=== PATIENT | male | born 1960 | race Hispanic/Latino ===

== ENCOUNTER 2017-05-30 07:09 | Day surgery (SDC) | payer MEDICARE ==
[2017-05-30 07:27] VITALS: BMI 34.2
[2017-05-30 07:42] VITALS: RESP 19
[2017-05-30] MEDS ORDERED: Propofol 10 mg/ml Inj (20 ML) ONE (08:06)
[2017-05-30] MEDS ORDERED: Lidocaine 1% Inj (20ml) ONE (08:07)
[2017-05-30] MEDS ORDERED: Sodium Chloride 0.9% 1,000 ML IV SCH (08:30)
[2017-05-30 09:25] VITALS: BP 113/76; PULSE 51; TEMP 97.4; O2SAT 97
== END 2017-05-30 09:43 | disposition home or self-care (01) ==
LOC: ENDO 07:09
PROVIDERS: ATTEND Specialist
DX: K25.9 Gastric ulcer, unspecified as acute or chronic, without hemorrhage or perforation (principal); K44.9 Diaphragmatic hernia without obstruction or gangrene; I71.4 Abdominal aortic aneurysm, without rupture
CPT/HCPCS: 43239; 88305; 88342; J2704; J7040 ×2

== ENCOUNTER 2017-12-26 08:08 | Observation (INO) | payer MEDICARE ==
[2017-12-26 08:17] VITALS: BMI 34.4
--- NOTE | 2017-12-26 08:47 | ED PDOC ---
Arrival/HPI - General Chief Complaint: Chest Pain Time Seen by Provider: 12/26/17 08:12 Historian: Patient - History of Present Illness Narrative History of Present Illness (Text): 12/26/17 08:41 Patient is a 57 yo M with PMH of HTN, CAD, PCI x 2 stents, Thoracic Aneurysm, dyslipidemia, hypogonadism presents to emergency department due to chest pain this AM. Patient states that pain was midsternal and did not radiate. Patient was worried due to his history of aortic aneurysm. Previous chest CT on 10/18/16 showed emergency department the ascending aorta measuring 4.2 cm and descending 3.3 cm, which was stable on comparison to previous imaging. Patient states that the chest pain has improved while in the emergency department, but is still present. Patient denies SOB, n/v/d, abdominal pain, fever, chills, AMARO, dizziness , or palpitations. PMD: Padkowsky Time/Duration: Prior to Arrival Symptom Onset: Sudden Symptom Course: Improving Quality: Pressure, Tightness Past Medical History - Provider Review Nursing Documentation Reviewed: Yes - Infectious Disease Hx of Infectious Diseases: None - Tetanus Immunization Tetanus Immunization: Unknown - Cardiac Hx Hypertension: Yes - Pulmonary Hx Respiratory Disorders: No - Neurological Hx Meningitis: Yes (Viral) Other/Comment: Brain aneurysm - HEENT Hx HEENT Disorder: Yes Hx Epistaxis: Yes - Renal Hx Renal Disorder: No - Endocrine/Metabolic Hx Endocrine Disorders: No - Hematological/Oncological Hx Blood Transfusions: No - Integumentary Hx Dermatological Disorder: No - Musculoskeletal/Rheumatological Hx Musculoskeletal Disorders: No - Gastrointestinal Hx Gastrointestinal Disorders: Yes Hx Constipation: Yes Other/Comment: CONSTIPATION - Genitourinary/Gynecological Hx Genitourinary Disorders: No - Psychiatric Hx Psychophysiologic Disorder: No Hx Substance Use: No - Surgical History Hx Coronary Stent: Yes (x2) Hx Orthopedic Surgery: Yes (Right hip replace, left knee replace) - Anesthesia Hx Anesthesia Reactions: No Hx Malignant Hyperthermia: No - Suicidal Assessment Feels Threatened In Home Enviroment: No Family/Social History - Physician Review Nursing Documentation Reviewed: Yes Family/Social History: No Known Family HX Smoking Status: Former Smoker Hx Alcohol Use: Yes (OCCASIONAL) Hx Substance Use: No Hx Substance Use Treatment: No Allergies/Home Meds Allergies/Adverse Reactions: Allergies No Known Allergies Allergy (Verified 12/26/17 08:28) Home Medications: Home Meds Medication Instructions Recorded Confirmed Lisinopril 40 mg PO DAILY 07/22/15 12/26/17 Review of Systems - Physician Review All systems were reviewed & negative as marked: Yes - Review of Systems Constitutional: Normal Eyes: Normal ENT: Normal Respiratory: Normal Cardiovascular: Chest Pain. absent: Palpitations Gastrointestinal: Normal Genitourinary Male: Normal Musculoskeletal: Normal Skin: Normal Neurological: Normal Endocrine: Normal Hemo/Lymphatic: Normal Psychiatric: Normal Physical Exam Vital Signs Pulse Pulse Resp BP Pulse Ox 12/26/17 11:34 59 L 18 111/71 98 12/26/17 08:32 60 Temperature: Afebrile Blood Pressure: Normal Pulse: Regular Respiratory Rate: Normal Appearance: Positive for: Non-Toxic Pain Distress: Mild Mental Status: Positive for: Alert and Oriented X 3 - Systems Exam Head: Present: Atraumatic, Normocephalic Pupils: Present: PERRL Extroacular Muscles: Present: EOMI Conjunctiva: Present: Normal Mouth: Present: Moist Mucous Membranes Neck: Present: Normal Range of Motion Respiratory/Chest: Present: Clear to Auscultation, Good Air Exchange. No: Respiratory Distress, Accessory Muscle Use Cardiovascular: Present: Regular Rate and Rhythm, Normal S1, S2. No: Murmurs Abdomen: No: Tenderness, Distention, Peritoneal Signs Back: Present: Normal Inspection Upper Extremity: Present: Normal Inspection. No: Cyanosis, Edema Lower Extremity: Present: Normal Inspection. No: Edema Neurological: Present: GCS=15, CN II-XII Intact, Speech Normal Skin: Present: Warm, Dry, Normal Color. No: Rashes Psychiatric: Present: Alert, Oriented x 3, Normal Insight, Normal Concentration Medical Decision Making ED Course and Treatment: 12/26/17 08:47 57 yo M presents to emergency department with chest pain. Plan: - CBC, CMP - Coags - Cardiac ISO - Chest X-Ray - EKG - CTA chest - Reassess and disposition 12/26/17 08:50 EKG reviewed shows rate of 63, NSR, possible right ventricular conduction delay , age undetermined inferior infarct. No acute changes. CK mildly elevated, NS bolus ordered. 12/26/17 10:40 CTA Chest Impression: Unremarkable CT pulmonary angiogram. No pulmonary embolus. No thoracic aortic aneurysm. 12/26/17 10:[address] Magaña, who agrees with plan and accepts patient under his service. Requests Dr. Domínguez for cardiology consult. Admitted for observation to telemetry. 12/26/17 11:54 On reassessment, patient resting comfortably in bed. No acute distress. Patient states that chest pain is improved after nitro paste. - Lab Interpretations Lab Results: 12/26/17 08:20 12/26/17 08:20 Lab Results 12/26/17 10:45: PT 12.8 H, INR 1.11 H, APTT 31.3 12/26/17 08:20: Sodium 140, Potassium 3.7, Chloride 103, Carbon Dioxide 24, Anion Gap 16, BUN 15, Creatinine 0.8, Est GFR ( Amer) > 60, Est GFR (Non- Af Amer) > 60, Random Glucose 108, Calcium 9.1, Magnesium 1.9, Total Bilirubin 0.4, AST 42, ALT 44, Alkaline Phosphatase 45, Lactate Dehydrogenase 600, Total Creatine Kinase 356 H, CK-MB (CK-2) 6.0 H, CK-MB (CK-2) % 1.7 L, Troponin I < 0.01, Total Protein 7.0, Albumin 4.0, Globulin 3.0, Albumin/Globulin Ratio 1.3 12/26/17 08:20: WBC 7.3, RBC 5.16, Hgb 14.6, Hct 43.1, MCV 83.5 D, MCH 28.3, MCHC 33.9, RDW 17.2 H, Plt Count 208, MPV 9.1, Gran % 70.4 H, Lymph % (Auto) 18.9 L, [place] % (Auto) 8.0 H, Eos % (Auto) 1.9, Baso % (Auto) 0.8, Gran # 5.16, Lymph # (Auto) 1.4, [place] # (Auto) 0.6, Eos # (Auto) 0.1, Baso # (Auto) 0.06 - RAD Interpretation Radiology Orders: 12/26/17 08:23 CHEST PORTABLE [RAD] Stat 12/26/17 08:27 ANGIO CHEST PE PROTOCOL [CT] Stat - Medication Orders Current Medication Orders: Aspirin (Aspirin Chewable) 81 mg PO DAILY KAYLA Atenolol (Tenormin) 50 mg PO DAILY KAYLA Atorvastatin Calcium (Lipitor) 40 mg PO DAILY KAYLA Ibuprofen (Motrin Tab) 800 mg PO TID KAYLA Isosorbide Mononitrate (Imdur Er) 60 mg PO DAILY KAYLA Lisinopril (Zestril) 40 mg PO DAILY KAYLA Oxycodone HCl (Oxycodone Immediate Release Tab) 30 mg PO Q4H PRN PRN Reason: Pain, severe (8-10) Discontinued Medications Sodium Chloride (Sodium Chloride 0.9%) 1,000 mls @ 999 mls/hr IV .Q1H1M STA Stop: 12/26/17 10:40 Last Admin: 12/26/17 10:33 Dose: 999 mls/hr eMAR Start Stop Document 12/26/17 10:33 EAR (Rec: 12/26/17 10:33 EAR [id number]) Intravenous Solution Start Date 12/26/17 Start Time 10:33 End Date 12/26/17 End time 11:30 Total Infusion Time 57 Nitroglycerin (Nitro-Bid 2% Oint) 1 ea TOP STAT STA Stop: 12/26/17 10:39 Last Admin: 12/26/17 10:56 Dose: 1 ea Disposition/Present on Arrival - Present on Arrival Any Indicators Present on Arrival: No History of DVT/PE: No History of Uncontrolled Diabetes: No Urinary Catheter: No History of Decub. Ulcer: No History Surgical Site Infection Following: None - Disposition Have Diagnosis and Disposition been Completed?: Yes Diagnosis: Chest pain Disposition: HOSPITALIZED Disposition Time: 12:18 Patient Plan: Admission, Telemetry Condition: STABLE
[2017-12-26 09:09] LABS: BASO # 0.06 K/mm3 (0.0-2.0); BASO % 0.8 % (0.0-3.0); EOS # 0.1 (0.0-0.7); EOS % 1.9 % (1.5-5.0); GRAN # 5.16 (1.4-6.5); GRAN % 70.4 % (50.0-68.0); HEMOGLOBIN 14.6 g/dL (14.0-18.0); LYMPH # 1.4 (1.2-3.4); LYMPH % 18.9 % (22.0-35.0); MEAN CELL VOLUME 83.5 fl (80.0-105.0); MEAN CORPUSCULAR HEMOGLOBIN 28.3 pg (25.0-35.0); MEAN CORPUSCULAR HGB CONC 33.9 g/dl (31.0-37.0); MEAN PLATELET VOLUME 9.1 fl (7.0-11.0); MONO # 0.6 (0.1-0.6); RBC 5.16 10^6/uL (3.5-6.1); RED CELL DISTRIBUTION WIDTH 17.2 % (11.5-14.5); WHITE BLOOD COUNT 7.3 10^3/ul (4.5-11.0)
[2017-12-26 09:16] LABS: ALB/GLOB RATIO 1.3 (1.1-1.8); ALT/SGPT 44 U/L (7-56); AST/SGOT 42 U/L (17-59); BLOOD UREA NITROGEN 15 mg/dL (7-21); CALCIUM 9.1 mg/dL (8.4-10.5); GFR NON-AFRICAN AMERICAN > 60
[2017-12-26 09:28] LABS: TROPONIN I < 0.01 ng/mL
[2017-12-26 09:33] LABS: CK MB% 1.7 % (2.5-3.0)
[2017-12-26] MEDS ORDERED: Sodium Chloride 0.9% 1,000 ML IV STA (09:40)
--- NOTE | 2017-12-26 10:37 | CT ---
PROCEDURE: CT Chest with contrast (Pulmonary Angiogram) HISTORY: r/o PE, eval ascending aortic aneurysm COMPARISON: None available. TECHNIQUE: Axial computed tomography images were obtained of the chest in the pulmonary arterial phase of enhancement. Coronal and sagittal reformatted images were created and reviewed. Intravenous contrast dose: Radiation dose: Total exam DLP = mGy-cm. This CT exam was performed using one or more of the following dose reduction techniques: Automated exposure control, adjustment of the mA and/or kV according to patient size, and/or use of iterative reconstruction technique. FINDINGS: PULMONARY ARTERIES: Unremarkable. No pulmonary embolism. AORTA: No acute findings. No thoracic aortic aneurysm. LUNGS: Unremarkable. No nodule, mass or pulmonary consolidation. PLEURAL SPACES: Unremarkable. No effusion or pneuomothorax. HEART: Unremarkable. No cardiomegaly. No significant pericardial effusion. LYMPH NODES: No lymphadenopathy. BONES, CHEST WALL: Unremarkable. No fracture or destructive lesion OTHER FINDINGS: Unremarkable. IMPRESSION: Unremarkable CT pulmonary angiogram. No pulmonary embolus.
[2017-12-26] MEDS ORDERED: Nitroglycerin 2% Ointment Foilpak UD TOP STA (10:38)
--- NOTE | 2017-12-26 10:57 | RAD ---
HISTORY: chest pain COMPARISON: 08/02/2017 FINDINGS: LUNGS: No active pulmonary disease. PLEURA: No significant pleural effusion identified, no pneumothorax apparent. CARDIOVASCULAR: Normal. OSSEOUS STRUCTURES: No significant abnormalities. VISUALIZED UPPER ABDOMEN: Normal. OTHER FINDINGS: None. IMPRESSION: No active disease.
[2017-12-26 11:29] LABS: INR 1.11 (0.93-1.08); PARTIAL THROMBOPLASTIN TIME 31.3 Seconds (25.1-36.5); PROTHROMBIN TIME 12.8 SECONDS (9.4-12.5)
[2017-12-26 11:36] VITALS: RESP 18
[2017-12-26] MEDS ORDERED: Pneumococcal 23-Valent Vaccine IM ONE (14:09)
--- NOTE | 2017-12-26 17:06 | CON ---
DATE: 12/26/2017 CARDIOLOGY CONSULTATION HISTORY: The patient is a 57-year-old male, who presents with one episode of chest discomfort. The patient's past medical history includes a history of hypertension, COPD, active smoker. He underwent cardiac catheterization 2 years ago, which revealed an occluded and a diffusely diseased LAD. LV function is preserved. The patient was sent home on medical treatment. He has done well until this morning when he developed focal substernal chest pain. The pain was pleuritic in nature. SOCIAL HISTORY: The patient is an active smoker. REVIEW OF SYSTEMS: Fourteen-point review of systems was reviewed in detail. No shortness of breath. Resolution of his chest pain. No edema. No bleeding noted. PHYSICAL EXAMINATION: VITAL SIGNS: Blood pressure is 112/69, heart rate is in the 60s. NECK: Negative JVD. LUNGS: Without rales. HEART: Reveals S1, S2. EXTREMITIES: Without edema. LABORATORY DATA: EKG is unremarkable. Troponin is negative x1. CT scan of the chest shows no aortic aneurysm. No pulmonary embolism noted. BUN and creatinine unremarkable. Hemoglobin is 14.6. IMPRESSION: 1. Transient pleuritic chest pain. 2. No evidence for acute coronary syndrome. 3. History of single-vessel coronary artery disease with an occluded left anterior descending in the past. 4. Chronic obstructive pulmonary disease. 5. Active smoker. 6. Noncompliance with medications and medical advice. PLAN: Given these findings, I have discussed with the patient about the need to stop smoking and the consequences to his heart of his continued smoking. We will add aspirin to his regimen as well as statin therapy. If his troponins are negative tomorrow, we will consider an outpatient stress test. Aries Domínguez MD
[2017-12-26] MEDS: oxyCODONE 30 mg Immediate Release Tab PO PRN ×2 (18:06→22:16)
--- NOTE | 2017-12-26 20:50 | HP ---
DATE OF EXAM: 12/26/2017 HISTORY OF PRESENT ILLNESS: The patient is a 57-year-old man with a past medical history of CAD status post PCI with stent placement, hypertension, hyperlipidemia and thoracic aortic aneurysm who presented to the emergency department for evaluation of a one-day history of sudden onset of substernal chest pain. The patient reports that he was in his usual state of health until the day of presentation to the emergency department when he developed a sudden onset of a sharp substernal chest pain. The pain was not radiating and was not associated with dyspnea, diaphoresis, palpitations or nausea. Given the intensity of the pain and his underlying comorbidities, he opted for ED evaluation, so as to asses stability of his underlying thoracic aortic aneurysm. Upon arrival to the ED, he was found to be afebrile and hemodynamically stable and initial laboratory studies were unremarkable including a negative troponin. 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 PAST MEDICAL HISTORY: As per HPI, also cerebral aneurysm status post coiling and lumbosacral radiculopathy. PAST SURGICAL HISTORY: As per HPI, also multiple orthopedic spine surgeries with diskectomy and fusion, bilateral knee arthroscopies, left total knee replacement, repair of right shoulder labrum tear and left hip replacement. ALLERGIES: NO KNOWN DRUG ALLERGIES. MEDICATIONS: Aspirin 81 mg p.o. daily, atenolol 50 mg p.o. daily, Lipitor 40 mg p.o. daily, Imdur 60 mg p.o. daily, lisinopril 40 mg p.o. daily, Prevacid 20 mg p.o. daily and oxycodone 30 mg p.o. every 4 hours p.r.n. pain. FAMILY HISTORY: Significant for diabetes, hypertension and coronary artery disease. SOCIAL HISTORY: The patient reports a former 20-pack year smoking history, but quit 8 years ago. He reports social alcohol use and denies illicit drug abuse. REVIEW OF SYSTEMS: A 14-point review of systems is negative except as per HPI. PHYSICAL EXAMINATION VITAL SIGNS: Temperature 98, pulse 60, blood pressure 117/77, respiratory rate 18, oxygen saturation 97% on room air. GENERAL: No apparent distress. HEENT: PERRL. EOMI. No scleral icterus. No conjunctival pallor. Poor dentition is noted. NECK: No JVD. No bruits. LUNGS: Clear to auscultation. CARDIOVASCULAR: Regular rate and rhythm. Normal S1 and S2. ABDOMEN: Normoactive bowel sounds. Soft, nontender, nondistended. EXTREMITIES: No edema. NEUROLOGIC: Awake, alert, and oriented x3. No focal motor deficits. LABORATORY DATA: CBC reviewed and unremarkable. CMP reviewed and unremarkable. Troponin less than 0.01. IMAGING STUDIES: 1. Chest x-ray demonstrates no acute pathology. 2. CT of the chest with IV contrast demonstrates stable thoracic aortic aneurysm and no evidence of PE. ASSESSMENT: The patient is a 57-year-old man with a past medical history of coronary artery disease status post percutaneous coronary intervention with stent placement, hypertension, hyperlipidemia, thoracic aortic aneurysm and chronic pain syndrome secondary to multilevel disk disease, status post multiple orthopedic spine surgeries, on chronic opiate therapy, who presented for evaluation of a one-day history of a sudden onset of substernal chest pain and who was admitted to telemetry aldridge to rule out acute coronary syndrome. PLAN: 1. Atypical chest pain, low probability for acute coronary syndrome. The patient will be admitted to telemetry aldridge to cycle cardiac enzymes. The initial troponin is negative. Dr. Domínguez of Cardiology has been consulted for further evaluation and recommendations. 2. CAD status post PCI with stent placement. Resume aspirin 81 mg p.o. daily, Lipitor 40 mg p.o. daily and atenolol 50 mg p.o. daily. 3. Hypertension. Blood pressure controlled. Resume lisinopril 40 mg p.o. daily and atenolol 50 mg p.o. daily. 4. Hyperlipidemia. Resume Lipitor 40 mg p.o. daily. 5. GERD. We will start Protonix 40 mg p.o. daily. 6. Sciatica. Resume oxycodone 30 mg p.o. every 4 hours p.r.n. pain. 7. Thoracic aortic aneurysm. CT imaging reviewed and demonstrates stability of thoracic aneurysm. 8. Prophylaxis. Continue with Protonix for GI prophylaxis. DVT prophylaxis is not indicted as the patient is ambulatory. CODE STATUS: Full code. Isaac Magaña MD
--- NOTE | 2017-12-26 22:20 | CARD ---
APPROVED REPORT EKG Measurement Heart [id number] MD [id number] <Conclusion> Normal sinus rhythm RSR' or QR pattern in V1 suggests right ventricular conduction delay Inferior infarct, age undetermined Abnormal ECG
[2017-12-27 01:06] VITALS: TEMP 97.7
[2017-12-27] MEDS ORDERED: Pantoprazole 40 mg EC Tab PO SCH (06:00)
[2017-12-27 06:02] VITALS: BP 94/54; O2SAT 97
[2017-12-27 06:28] LABS: BASO # 0.03 K/mm3 (0.0-2.0); BASO % 0.6 % (0.0-3.0); EOS # 0.3 (0.0-0.7); EOS % 5.1 % (1.5-5.0); GRAN # 2.51 (1.4-6.5); GRAN % 50.8 % (50.0-68.0); LYMPH # 1.7 (1.2-3.4); LYMPH % 33.8 % (22.0-35.0); MEAN CELL VOLUME 85.3 fl (80.0-105.0); MEAN CORPUSCULAR HEMOGLOBIN 28.2 pg (25.0-35.0); MONO # 0.5 (0.1-0.6); MONO % 9.7 % (1.0-6.0); RBC 5.32 10^6/uL (3.5-6.1); RED CELL DISTRIBUTION WIDTH 19.2 % (11.5-14.5); WHITE BLOOD COUNT 4.9 10^3/ul (4.5-11.0)
[2017-12-27 07:12] LABS: TROPONIN I < 0.01 ng/mL
[2017-12-27 07:14] LABS: ALB/GLOB RATIO 1.3 (1.1-1.8); ALBUMIN 3.4 g/dL (3.0-4.8); ALT/SGPT 33 U/L (7-56); AST/SGOT 26 U/L (17-59); BLOOD UREA NITROGEN 14 mg/dL (7-21); CALCIUM 8.4 mg/dL (8.4-10.5); GFR NON-AFRICAN AMERICAN > 60
--- NOTE | 2017-12-27 08:21 | PN ---
DATE: 12/27/2017 CARDIOLOGY FOLLOWUP SUBJECTIVE: The patient is chest pain free. PHYSICAL EXAMINATION: VITAL SIGNS: Blood pressure is 121/76, heart rate is in the 50s. NECK: Negative JVD. LUNGS: Without rales. HEART: Reveal S1, S2. EXTREMITIES: Without edema. DATA: Troponins are negative x3. Hemoglobin is 15. IMPRESSION: 1. Resolution of chest pain. 2. No evidence for acute coronary syndrome. 3. Chronic obstructive pulmonary disease. 4. Active smoker. 5. History of coronary artery disease in the past. Given these findings, from a cardiac perspective, the patient can be discharged. We will discontinue Telemetry today. I have discussed with the patient about the need to stop smoking, given the patient is scheduled for a stress test next week. Aries Domínguez MD
[2017-12-27 10:54] VITALS: PULSE 55
--- NOTE | 2017-12-27 19:24 | DS ---
HISTORY OF PRESENT ILLNESS: The patient is a 57-year-old white male who is currently on room 270, bed 1. The patient presented yesterday to the emergency room with a chief complaint of chest pain. The patient was admitted for observation due to a history of coronary artery disease. PAST MEDICAL HISTORY: Remarkable for total left hip replacement, total right hip replacement, hypercholesterolemia, coronary artery disease, hypertension and aortic aneurysm. PHYSICAL EXAMINATION: VITAL SIGNS: Stable with a temperature of 97.7, pulse rate of 46, blood pressure 121/76 with an O2 saturation of 95% on room air. HEENT: Negative. NECK: Supple with a full range of motion. LUNGS: Clear. There is pain on chest compression at the sternum of the left ribs. HEART: Regular rate and rhythm. ABDOMEN: Benign. NEUROLOGIC: There are no focal deficits. LABORATORY DATA: CBC is entirely unremarkable. Troponins are negative x3. The patient will be discharged on all previous medications. He was seen and cleared by Dr. Aries Domínguez. He will have the stress test in 2 weeks time. DISCHARGE DIAGNOSES: 1. Costochondritis. 2. Coronary artery disease. 3. Hyperlipidemia. 4. Hypertension. Severo Magaña MD
== END 2017-12-27 11:10 | disposition home or self-care (01) ==
LOC: ED 08:08 → ERH 10:47 → UNDOADMOB 10:47 → ERH 11:06 → UNDOADMOB 11:06 → ERH 11:21 → 2RSO 12:16
PROVIDERS: ADMIT Student in an Organized Health Care Education/Training Program; ATTEND Student in an Organized Health Care Education/Training Program
DX: M94.0 Chondrocostal junction syndrome [Tietze] (principal); I25.10 Atherosclerotic heart disease of native coronary artery without angina pectoris; I10 Essential (primary) hypertension; E78.00 Pure hypercholesterolemia, unspecified; G89.4 Chronic pain syndrome; I71.2 Thoracic aortic aneurysm, without rupture; K21.9 Gastro-esophageal reflux disease without esophagitis; J44.9 Chronic obstructive pulmonary disease, unspecified; E78.5 Hyperlipidemia, unspecified; F17.200 Nicotine dependence, unspecified, uncomplicated; Z79.891 Long term (current) use of opiate analgesic; Z95.5 Presence of coronary angioplasty implant and graft; Z91.14 Patient's other noncompliance with medication regimen; Z96.643 Presence of artificial hip joint, bilateral
CPT/HCPCS: 36415; 71045; 71275; 80053; 82550; 82553; 83615; 83735; 84484; 85025; 85610; 85730; 93005; 96360; 99284; G0378; J7030; Q9967

== ENCOUNTER 2018-01-09 06:02 | Day surgery (SDC) | payer MEDICARE ==
[2018-01-06 16:20] VITALS: BMI 33.4
[2018-01-09 06:56] LABS: BASO # 0.05 K/mm3 (0.0-2.0); BASO % 0.6 % (0.0-3.0); EOS % 0.4 % (1.5-5.0); GRAN # 5.84 (1.4-6.5); GRAN % 74.1 % (50.0-68.0); LYMPH # 1.5 (1.2-3.4); LYMPH % 18.6 % (22.0-35.0); MEAN CORPUSCULAR HGB CONC 33.7 g/dl (31.0-37.0); MEAN PLATELET VOLUME 9.1 fl (7.0-11.0); MONO # 0.5 (0.1-0.6); MONO % 6.3 % (1.0-6.0); RBC 5.72 10^6/uL (3.5-6.1); RED CELL DISTRIBUTION WIDTH 17.9 % (11.5-14.5); WHITE BLOOD COUNT 7.9 10^3/ul (4.5-11.0)
[2018-01-09 07:01] LABS: INR 1.04 (0.93-1.08); PARTIAL THROMBOPLASTIN TIME 28.6 Seconds (25.1-36.5)
[2018-01-09 07:05] LABS: BLOOD UREA NITROGEN 18 mg/dL (7-21); CALCIUM 8.9 mg/dL (8.4-10.5); GFR AFRICAN-AMERICAN > 60; GFR NON-AFRICAN AMERICAN > 60; HDL CHOLESTEROL 45 mg/dL (29-60); LDL CHOLESTEROL 110 mg/dL (0-129)
[2018-01-09] MEDS ORDERED: Lidocaine 2% Inj (20ml) ONE (09:02)
[2018-01-09] MEDS ORDERED: Phenylephrine 10 mg/ml Inj ONE (09:02)
[2018-01-09] MEDS ORDERED: Iodixanol 320 MG/ML 100 ML BOTTLE IV ONE (09:03)
[2018-01-09] MEDS ORDERED: Iohexol 350mgl/ml 50 ML ONE (09:03)
[2018-01-09] MEDS ORDERED: Iodixanol 320 MG/ML 200 ML BOTTLE IV ONE (09:04)
[2018-01-09] MEDS ORDERED: Nitroglycerin 50mg in D5W 0 MG/0 ML BOTTLE IV ONE (09:06)
[2018-01-09] MEDS ORDERED: Midazolam 2 MG/2 ML VIAL ONE ×3 (09:23→09:43)
[2018-01-09] MEDS ORDERED: Sodium Chloride 0.9% 1,000 ML IV SCH (10:30)
[2018-01-09] MEDS: oxyCODONE 30 mg Immediate Release Tab PO PRN ×2 (11:32→20:14)
--- NOTE | 2018-01-09 13:42 | HP ---
HISTORY OF PRESENT ILLNESS: The patient is a 57 year old man with a past medical history of CAD s/p PCI with stent placement, hypertension and hyperlipidemia who presented for electively scheduled cardiac catheterization after undergoing a nuclear stress test which was abnormal. The patient was taken to the cardiac catheterization lab with Dr. Domínguez where he was found to have a chronically occluded LAD lesion which was unable to be stented. The patient tolerated the procedure well and was extensively counseled on the need for smoking cessation, cardiac rehab and medical therapy and was subsequently admitted to the telemetry aldridge for postcardiac catheterization care. PAST MEDICAL HISTORY: As per HPI, also thoracic aortic aneurysm, cerebral aneurysm s/p coiling and lumbosacral radiculopathy. PAST SURGICAL HISTORY: As per HPI, also multiple orthopedic spine surgeries with diskectomy and fusion , bilateral knee arthroscopies, left total knee replacement, repair of right shoulder labrum tear and left hip replacement. ALLERGIES: NKDA. MEDICATIONS: Aspirin 81 mg p.o. daily, Atenolol 50 mg p.o. daily, Lipitor 40 mg p.o. daily, Imdur 60 mg p.o. daily, Lisinopril 40 mg p.o. daily, Prevacid 20 mg p.o. daily and Oxycodone 30 mg p.o. q. 4 hours p.r.n. pain. FAMILY HISTORY: Significant for diabetes, hypertension and CAD. SOCIAL HISTORY: The patient reports an active 20-pack year smoking history and social alcohol use. He denies illicit drug abuse. REVIEW OF SYSTEMS: A 12-point review of systems is negative except as per HPI. PHYSICAL EXAMINATION VITAL SIGNS: Temperature 98.5, pulse 67, blood pressure 143/90, respiratory rate 18, oxygen saturation 96% on room air. GENERAL: No apparent distress. HEENT: PERRL. EOMI. No scleral icterus. No conjunctival pallor. Poor dentition is noted. NECK: No JVD. No bruits. LUNGS: Clear to auscultation. CARDIOVASCULAR: Regular rate and rhythm. Normal S1 and S2. ABDOMEN: Normoactive bowel sounds. Soft, nontender, nondistended. EXTREMITIES: No edema. NEUROLOGIC: Awake, alert, and oriented x 3. No focal motor deficits. LABORATORY DATA: CBC reviewed and unremarkable. CMP reviewed and unremarkable. ASSESSMENT: The patient is a 57 year old man with a past medical history of CAD s/p PCI with stent placement, HTN and hyperlipidemia who presented for electively scheduled cardiac catheterization after undergoing an abnormal nuclear stress test. PLAN: 1. CAD s/p PCI with stent placement. The patient has been extensively counseled on the need for smoking cessation and lifestyle modifications. He has also been encouraged to enroll in a cardiac risk reduction program. Continue Aspirin 81 mg p.o. daily, Lipitor 40 mg p.o. daily and Metoprolol 25 mg p.o. b.i.d. Continue with postcatheterization care as per Dr. Domínguez. 2. Hypertension. Blood pressure controlled. Continue current medications. 3. Hyperlipidemia. Continue Lipitor 40 mg p.o. daily. 4. GERD. Continue Protonix 40 mg p.o. daily. 5. Sciatica. Resume Oxycodone 30 mg p.o. every 4 hours p.r.n. pain. 6. Thoracic aortic aneurysm, stable. 7. Prophylaxis. Continue with Protonix for GI prophylaxis. DVT prophylaxis is not indicted as the patient is ambulatory. CODE STATUS: Full code. Isaac Magaña MD [facility]
--- NOTE | 2018-01-09 13:45 | CARDCATH ---
PROCEDURE DATE: 01/09/2018 HISTORY: The patient is a 57-year-old male with documented multivessel CAD and PTCA in the past. The patient continues to smoke and is noncompliant to his cardiac risk reduction recommendations. He presents with an abnormal stress test. PROCEDURE: Left heart catheterization with coronary arteriography and left ventriculogram followed by attempted PTCA of a chronically occluded LAD. The right femoral artery was cannulated with a 6-Liberian sheath. There were no complications. I performed moderate sedation which included the presence of an independent trained observer that assisted in monitoring the patient's level of consciousness and physiologic status. After administration of Versed and fentanyl, my intra service time was 45 minutes. The findings on catheterization revealed a right dominant circulation. The RCA revealed intimal irregularities with a patent stent in the proximal portion. The left main artery was unremarkable. The LAD was occluded just after the takeoff of the first septal pretzel twister. Retrograde filling of the LAD revealed multiple lesions throughout its course. The appearance appeared to be chronic. The circumflex artery and obtuse marginal branches revealed intimal irregularities without significant stenoses. The left ventricle was viewed in the HIGH projection. In the HIGH projection, wall motion is normal with an EF of approximately 60%. The patient was started on intravenous Angiomax. Under fluoroscopic guide, the guiding catheter was placed in the ostium of the left main artery. Multiple attempts at crossing the total occlusion were unsuccessful. Multiple wires including wire was able to penetrate several millimeters into the chronic occlusion; however, the chronicity of the vessel as well as the calcification as well as tortuosity, we were unable to fully penetrate the entire total occlusion. A 2.0 balloon was utilized to dilate the proximal portion of the occlusion which had no effect. Repeat coronary arteriography revealed no change in this lesion. The patient tolerated the procedure well. Angio-Seal was used to close the femoral artery site. In summary, the procedure was unsuccessful for attempt at PTCA of chronically occluded mid LAD stenoses. Cardiac catheterization reveals a chronically occluded mid LAD as well as a patent stent in the RCA. LV function is normal. Given these findings, the patient will continue medical therapy. We will add beta-blockers to his regimen. In addition, I have discussed with the patient about his need to stop smoking and undergo a cardiac risk reduction program. Aries Domínguez MD [facility] # [id number]
--- NOTE | 2018-01-09 19:34 | CARD ---
APPROVED REPORT Date of service: 01/09/2018 EKG Measurement Heart [id number] [id number] <Conclusion> Sinus bradycardia Cannot rule out Inferior infarct, age undetermined Abnormal ECG
--- NOTE | 2018-01-09 19:50 | CARD ---
APPROVED REPORT Date of service: 01/09/2018 EKG Measurement Heart [id number] [id number] <Conclusion> Sinus rhythm with premature atrial complexes Left axis deviation Moderate voltage criteria for LVH, may be normal variant Abnormal ECG
[2018-01-10] MEDS: oxyCODONE 30 mg Immediate Release Tab PO PRN (02:18)
[2018-01-10] MEDS ORDERED: Pantoprazole 40 mg EC Tab PO SCH (06:00)
[2018-01-10 06:39] VITALS: RESP 20; TEMP 97.8; O2SAT 96
[2018-01-10 07:01] LABS: BASO # 0.04 K/mm3 (0.0-2.0); BASO % 0.6 % (0.0-3.0); EOS # 0.2 (0.0-0.7); EOS % 2.3 % (1.5-5.0); GRAN # 4.84 (1.4-6.5); GRAN % 66.8 % (50.0-68.0); HEMOGLOBIN 16.2 g/dL (14.0-18.0); LYMPH # 1.7 (1.2-3.4); LYMPH % 23.5 % (22.0-35.0); MEAN CELL VOLUME 85.1 fl (80.0-105.0); MEAN CORPUSCULAR HEMOGLOBIN 27.7 pg (25.0-35.0); MEAN CORPUSCULAR HGB CONC 32.6 g/dl (31.0-37.0); MONO # 0.5 (0.1-0.6); MONO % 6.8 % (1.0-6.0); RBC 5.84 10^6/uL (3.5-6.1); RED CELL DISTRIBUTION WIDTH 18.3 % (11.5-14.5); WHITE BLOOD COUNT 7.2 10^3/ul (4.5-11.0)
[2018-01-10 07:35] LABS: BLOOD UREA NITROGEN 11 mg/dL (7-21); CALCIUM 8.6 mg/dL (8.4-10.5); GFR AFRICAN-AMERICAN > 60; GFR NON-AFRICAN AMERICAN > 60
[2018-01-10 09:45] VITALS: BP 121/86; PULSE 64
--- NOTE | 2018-01-10 13:36 | PN ---
DATE: 01/09/2018 CARDIOLOGY FOLLOWUP SUBJECTIVE: The patient is chest pain free. PHYSICAL EXAMINATION: VITAL SIGNS: Blood pressure is 108/70, the heart rates in the 50s, normal sinus rhythm. NECK: Negative JVD. LUNGS: Without rales. HEART: S1, S2. EXTREMITIES: Without edema. The right groin site is stable. LABORATORY DATA: BUN and creatinine are unremarkable. Hemoglobin is 16. IMPRESSION: 1. Status post catheterization. 2. 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 3. Patent stents in his other vessels. 4. Chronic obstructive pulmonary disease. 5. Hypercholesterolemia. 6. Hypertension. PLAN: Given these findings, the patient is stable for discharge. I have discussed with him the need for cardiac risk reduction program which includes cessation of smoking. A nicotine patch has been offered to the patient. In addition, we will adjust his medications and include beta-blockers. We will discharge his Norvasc and we will reduce his lisinopril. We will continue on an aspirin daily. Aries Domínguez MD
--- NOTE | 2018-01-10 23:52 | DS ---
HISTORY OF PRESENT ILLNESS: The patient was admitted for cardiac catheterization due to an abnormal stress test. PAST MEDICAL HISTORY: The patient has an aortic aneurysm, degenerative right hip, hypertension, hyperlipidemia, and multivessel coronary artery disease. ALLERGIES: HE HAS NO KNOWN ALLERGIES. SOCIAL HISTORY: The patient does continue to smoke. PHYSICAL EXAMINATION: VITAL SIGNS: Temperature of 97.8, pulse rate of 47, blood pressure 108/70, respiratory rate of 20 with an O2 saturation of 96% on room air. HEENT: Negative. NECK: Supple with a full range of motion. LUNGS: Clear bilaterally. HEART: Regular rate and rhythm. ABDOMEN: Benign. NEUROLOGIC: The patient is intact. The patient underwent a catheterization. He had a chronically occluded LAD, which the track supervisor attempted to open, but was unsuccessful. He will be discharged today to continue current medications. DISCHARGE DIAGNOSES: 1. Coronary artery disease. 2. Hypertension. 3. Hyperlipidemia. 4. Osteoarthritis of hip. Severo Magaña MD
== END 2018-01-10 15:41 | disposition home or self-care (01) ==
LOC: CATH 06:02 → 2RSO 10:45 → CATH 01-10 15:41
PROVIDERS: ATTEND Internal Medicine Cardiovascular Disease
DX: I25.10 Atherosclerotic heart disease of native coronary artery without angina pectoris (principal); E78.00 Pure hypercholesterolemia, unspecified; E78.5 Hyperlipidemia, unspecified; R94.39 Abnormal result of other cardiovascular function study; I71.2 Thoracic aortic aneurysm, without rupture; I10 Essential (primary) hypertension; J44.9 Chronic obstructive pulmonary disease, unspecified; K21.9 Gastro-esophageal reflux disease without esophagitis; Z79.82 Long term (current) use of aspirin; Z79.899 Other long term (current) drug therapy; Z82.49 Family history of ischemic heart disease and other diseases of the circulatory system; Z83.3 Family history of diabetes mellitus; F17.210 Nicotine dependence, cigarettes, uncomplicated; Z91.19 Patient's noncompliance with other medical treatment and regimen; Z95.5 Presence of coronary angioplasty implant and graft; Z96.642 Presence of left artificial hip joint; Z96.652 Presence of left artificial knee joint

== ENCOUNTER 2018-03-18 10:24 | Emergency (ER) | payer MEDICARE ==
[2018-03-18 10:24] VITALS: BMI 33.4
[2018-03-18 10:41] VITALS: RESP 18; TEMP 98.5
--- NOTE | 2018-03-18 11:09 | ED PDOC ---
Arrival/HPI - General Historian: Patient - History of Present Illness Time/Duration: < week <Moses Amador - Last Filed: 03/18/18 14:08> <ReinaldoJagnisa Desai - Last Filed: 03/18/18 17:56> - General Chief Complaint: Hip Pain Time Seen by Provider: 03/18/18 10:28 - History of Present Illness Narrative History of Present Illness (Text): 03/18/18 11:09 Patient is a 58 year old male with a past medical history of HTN, CAD, PCI x 2 stents, Thoracic Aneurysm, dyslipidemia, hypogonadism, brain aneurysm (s/p coiling) and right total hip replacement (2 years ago) presenting to the emergency room with a complaint of intermittent right buttocks and right calf pain for 5 days. The pain is described as a strong, dull pain, "like getting hit by a hammer". The pain started on soon after working out. The pain starts in his right buttocks and occurs in his right calf but does not occur in his thigh. The pain only occurs when he is staying still. He has no pain while he is walking. The pain is improved when he is laying on his right side compared to his laying flat or on his left side. He has not taken any medications. He denies any trauma. He is presenting to the emergency room because the pain has not gone away. Denies fevers, chills, nausea, vomiting, diarrhea, constipation, chest pain, shortness of breath, abdominal pain, numbness or tingling. PMD: Dr. Isaac Magaña (Moses Amador) Past Medical History - Provider Review Nursing Documentation Reviewed: Yes - Infectious Disease Hx of Infectious Diseases: None - Tetanus Immunization Tetanus Immunization: Unknown - Cardiac Hx Hypertension: Yes Hx Pacemaker: No Other/Comment: AAA. Brain aneurysm - Pulmonary Hx Respiratory Disorders: Yes (SMOKES CIGARETTES PK LASTS 2-3 D) - Neurological Hx Paralysis: No - HEENT Hx HEENT Disorder: Yes Hx Epistaxis: Yes - Renal Hx Renal Disorder: No - Endocrine/Metabolic Hx Endocrine Disorders: No - Hematological/Oncological Hx Blood Transfusions: No - Integumentary Hx Dermatological Disorder: No - Musculoskeletal/Rheumatological Hx Musculoskeletal Disorders: Yes (TOTAL L KNEE W/TITANIUM,RIGHT HIP TOTAL REPLACEMENT) - Gastrointestinal Hx Gastrointestinal Disorders: Yes Other/Comment: CONSTIPATION - Genitourinary/Gynecological Hx Genitourinary Disorders: No - Psychiatric Hx Emotional Abuse: No Hx Physical Abuse: No Hx Substance Use: Yes (H/O OPIATE OD) - Surgical History Other/Comment: Brain aneurysm coil, disc Sx (back and neck) - Anesthesia Hx Anesthesia Reactions: No Hx Malignant Hyperthermia: No - Suicidal Assessment Feels Threatened In Home Enviroment: No <Moses Amador - Last Filed: 03/18/18 14:08> Family/Social History - Physician Review Nursing Documentation Reviewed: Yes Family/Social History: Unknown Family HX Smoking Status: Former Smoker Hx Alcohol Use: Yes (SOCIALLY) Hx Substance Use: Yes (H/O OPIATE OD) Hx Substance Use Treatment: No <Moses Amador - Last Filed: 03/18/18 14:08> Allergies/Home Meds <Moses Amador - Last Filed: 03/18/18 14:08> <Ulysses Najera - Last Filed: 03/18/18 17:56> Allergies/Adverse Reactions: Allergies No Known Allergies Allergy (Verified 03/18/18 10:41) Home Medications: Home Meds Medication Instructions Recorded Confirmed Isosorbide Mononitrate [Imdur] 60 mg PO DAILY 01/03/18 03/18/18 Multivitamin/Iron/Folic Acid 1 tab PO DAILY 01/06/18 03/18/18 [Centrum Complete Multivit Tab] Oxycodone HCl [Roxicodone] 30 mg PO PRN PRN 01/06/18 03/18/18 Review of Systems - Physician Review All systems were reviewed & negative as marked: Yes - Review of Systems Constitutional: Normal. absent: Fatigue Eyes: Normal ENT: Normal Respiratory: Normal. absent: SOB, Cough Cardiovascular: Normal. absent: Chest Pain Gastrointestinal: Normal. absent: Abdominal Pain, Constipation, Diarrhea, Nausea, Vomiting Musculoskeletal: Other (Right buttock/right calf pain). absent: Back Pain Skin: Normal. absent: Rash Neurological: Normal Endocrine: Normal Hemo/Lymphatic: Normal. absent: Adenopathy Psychiatric: Normal. absent: Anxiety <Moses Amador - Last Filed: 03/18/18 14:08> Physical Exam Vital Signs Reviewed: Yes Temperature: Afebrile Blood Pressure: Normal Pulse: Regular Respiratory Rate: Normal Appearance: Positive for: Well-Appearing, Non-Toxic, Comfortable Pain Distress: None Mental Status: Positive for: Alert and Oriented X 3 - Systems Exam Head: Present: Atraumatic, Normocephalic Extroacular Muscles: Present: EOMI Conjunctiva: Present: Normal Mouth: Present: Moist Mucous Membranes Nose (External): Present: Atraumatic Nose (Internal): Present: Normal Inspection, No Active Bleeding, Moist Neck: Present: Normal Range of Motion Respiratory/Chest: Present: Clear to Auscultation, Good Air Exchange. No: Respiratory Distress, Accessory Muscle Use Cardiovascular: Present: Regular Rate and Rhythm, Normal S1, S2. No: Murmurs Abdomen: Present: Normal Bowel Sounds. No: Tenderness, Distention, Peritoneal Signs Rectal: Present: Other (Right buttock tenderness) Upper Extremity: Present: Normal Inspection, NORMAL PULSES. No: Cyanosis, Edema Lower Extremity: Present: Normal Inspection, NORMAL PULSES, Swelling, Neurovascularly Intact, Capillary Refill < 2 s. No: Edema, CALF TENDERNESS, Cyanosis, Blake's Sign, Erythema, Temperature Abnormalties Neurological: Present: GCS=15, Speech Normal, Motor Func Grossly Intact Skin: Present: Warm, Dry, Normal Color. No: Rashes Lymphatic: No: Cervical Adenopathy Psychiatric: Present: Alert, Oriented x 3, Normal Insight, Normal Concentration <Moses Amador - Last Filed: 03/18/18 14:08> Vital Signs Temp Pulse Resp BP Pulse Ox 03/18/18 12:28 80 18 141/78 99 03/18/18 10:38 98.5 F 68 18 142/86 96 Medical Decision Making <Moses Amador - Last Filed: 03/18/18 14:08> <Ulysses Najera - Last Filed: 03/18/18 17:56> ED Course and Treatment: 03/18/18 11:32 Patient is a 58 year old male with a past medical history of HTN, CAD, PCI x 2 stents, Thoracic Aneurysm, dyslipidemia, hypogonadism, brain aneurysm (s/p coiling) and right total hip replacement (2 years ago) presenting to the emergency room with a complaint of intermittent right buttocks and right calf pain for 5 days. ddx - Sciatica Right hip xray - r/o hardware malfxn Toradol and Flexeril Will re-assess (M[facility] Amador) :[birth year] 58 year old male presents to the Emergency Department complaining of right buttock and right calf pain since 5 days. In agreement with resident note, which includes further HPI details. Patient was seen and evaluated with resident, came up with plan and treatment together. (Ulysses Najera) - RAD Interpretation Radiology Orders: 03/18/18 11:06 Hip Right [HIP MIN 2V W/ PELVIS RT] [RAD] Stat - Medication Orders Current Medication Orders: Discontinued Medications Cyclobenzaprine HCl (Flexeril) 10 mg PO STAT STA Stop: 03/18/18 11:08 Last Admin: 03/18/18 11:45 Dose: 10 mg Ketorolac Tromethamine (Toradol) 60 mg IM STAT STA Stop: 03/18/18 11:08 Last Admin: 03/18/18 11:45 Dose: 60 mg MAR Pain Assessment Document 03/18/18 11:45 GMD (Rec: 03/18/18 11:46 GMD [id number]) Pain Reassessment Is this a pain reassessment? No IM Administration Charges Document 03/18/18 11:45 GMD (Rec: 03/18/18 11:46 GMD [id number]) Injection Site MAR Injection Site Left Deltoid Charges for Administration # of IM Administrations 1 <Moses Amador - Last Filed: 03/18/18 14:08> - PA / STAFFING MGR / Resident Statement / has reviewed & agrees with the documentation as recorded. MD/ has examined the patient and agrees with the treatment plan. - Scribe Statement The provider has reviewed the documentation as recorded by the Scribe <Ulysses Najera - Last Filed: 03/18/18 17:56> - Scribe Statement Cordelia Auguste. All medical record entries made by the Scribe were at my direction and personally dictated by me. I have reviewed the chart and agree that the record accurately reflects my personal performance of the history, physical exam, medical decision making, and the department course for this patient. I have also personally directed, reviewed, and agree with the discharge instructions and disposition. (Ulysses Najera) Disposition/Present on Arrival - Present on Arrival History of DVT/PE: No History of Uncontrolled Diabetes: No Urinary Catheter: No History of Decub. Ulcer: No History Surgical Site Infection Following: None <Moses Amador - Last Filed: 03/18/18 14:08> - Present on Arrival Any Indicators Present on Arrival: No - Disposition Have Diagnosis and Disposition been Completed?: Yes Disposition Time: 12:22 Patient Plan: Discharge <Ulysses Najera - Last Filed: 03/18/18 17:56> - Disposition Diagnosis: Sciatica, Muscular aches Disposition: HOME/ ROUTINE Condition: IMPROVED Discharge Instructions (ExitCare): Sciatica (DC), Muscle and Bone Pain (DC) Additional Instructions: ROCIO SELBY, thank you for letting us take care of you today. Your provider was Ulysses Najera DO and you were treated for Musculoskeletal, Sciatica. The emergency medical care you received today was directed at your acute symptoms. If you were prescribed any medication, please fill it and take as directed. It may take several days for your symptoms to resolve. Return to the Emergency Department if your symptoms worsen, do not improve, or if you have any other problems. Please contact your doctor or call one of the physicians/clinics you have been referred to that are listed on the Patient Visit Information form that is included in your discharge packet. Bring any paperwork you were given at discharge with you along with any medications you are taking to your follow up visit. Our treatment cannot replace ongoing medical care by a primary care provider outside of the emergency department. Thank you for allowing the [facility] team to be part of your care today. If you had an X-Ray or CT scan: A Radiologist will review the ED reading if any change in treatment is needed we will contact you. If you had a blood, urine, or wound culture: It will take several days for the results, if any change in treatment is needed we will contact you. If you had an STI test: It will take 48 hours for the results. Please call after 1 week if you have not heard back. Prescriptions: Cyclobenzaprine [Flexeril] 5 mg PO TID PRN #20 tab PRN Reason: Muscle Spasm Ibuprofen [Motrin] 600 mg PO Q6 PRN #30 tab PRN Reason: Pain, Moderate (4-7) Referrals: Archana EDWARD,Isaac Jimenez MD [Primary Care Provider] - Follow up with primary Forms: [employer] (Maldivian), WORK NOTE
[2018-03-18 12:28] VITALS: BP 141/78; PULSE 80; O2SAT 99
--- NOTE | 2018-03-18 14:34 | RAD ---
PROCEDURE: Right Hip and pelvis radiographs. HISTORY: right hip pain, h/o total hip replacement COMPARISON: None. FINDINGS: BONES: Normal. No fracture. JOINTS: There is a right hip prosthesis. There is some heterotopic bone adjacent to the superior acetabulum. There is no fracture or loosening SOFT TISSUES: Normal. OTHER FINDINGS: None. IMPRESSION: There is a right hip prosthesis. There is some heterotopic bone adjacent to the superior acetabulum. There is no fracture or loosening
== END 2018-03-18 12:28 | disposition home or self-care (01) ==
LOC: ED 10:24
DX: M54.30 Sciatica, unspecified side (principal); M79.1 Myalgia
CPT/HCPCS: 73502; 96372; 99284; J1885

== ENCOUNTER 2018-04-27 17:10 | Emergency (ER) | payer MEDICARE ==
[2018-04-27 17:11] VITALS: BMI 33.4
[2018-04-27 17:23] VITALS: RESP 18; TEMP 98
--- NOTE | 2018-04-27 18:23 | ED PDOC ---
Arrival/HPI - History of Present Illness Narrative History of Present Illness (Text): 04/27/18 19:00 Patient is a 58 year old male with a past medical history of kidney stones, throat cancer s/p trach last week, HTN, CAD, PCI x 2 stents, Thoracic Aneurysm, dyslipidemia, hypogonadism, brain aneurysm (s/p coiling) and left knee replacement, right total hip replacement presents to the ED c/o intermittent left sided flank pain x 2 days. Pt has noticed blood in his urine multiple times today. Pt also mildly nauseous today, no vomiting. Tolerating PO intake. Currently denying flank, abdominal, or back pain. Pt was discharged from [facility] after tracheotomy tube placement, current ly on Amoxicillin. Denies fevers, chills, vomiting, diarrhea, abdominal pain, headache, dizziness, chest pain, SOB, dysuria, frequency, penile discharge, penile lesions. <Stefani Blair - Last Filed: 04/28/18 14:05> <Darlin Torrez - Last Filed: 04/30/18 07:35> - General Chief Complaint: Male Genitourinary Time Seen by Provider: 04/27/18 17:49 Past Medical History - Provider Review Nursing Documentation Reviewed: Yes - Infectious Disease Hx of Infectious Diseases: None - Tetanus Immunization Tetanus Immunization: Unknown - Cardiac Hx Angina: (chest pain) - Pulmonary Hx Chronic Obstructive Pulmonary Disease (COPD): Yes - Neurological Hx Paralysis: No - HEENT Hx HEENT Disorder: Yes Hx Epistaxis: Yes Other/Comment: Throat cancer. Trach in place - Renal Hx Renal Disorder: No - Endocrine/Metabolic Hx Endocrine Disorders: No - Hematological/Oncological Hx Blood Transfusions: No - Integumentary Hx Dermatological Disorder: No - Musculoskeletal/Rheumatological Hx Musculoskeletal Disorders: Yes (TOTAL L KNEE W/TITANIUM,RIGHT HIP TOTAL REPLACEMENT) - Gastrointestinal Hx Gastrointestinal Disorders: Yes Other/Comment: CONSTIPATION - Genitourinary/Gynecological Hx Genitourinary Disorders: No - Psychiatric Hx Emotional Abuse: No Hx Physical Abuse: No Hx Substance Use: Yes (H/O OPIATE OD) - Surgical History Hx Cardiac Catheterization: Yes (2 stents) Other/Comment: Trach placement - Anesthesia Hx Anesthesia Reactions: No Hx Malignant Hyperthermia: No - Suicidal Assessment Feels Threatened In Home Enviroment: No <Stefani Blair - Last Filed: 04/28/18 14:05> Family/Social History - Physician Review Nursing Documentation Reviewed: Yes Family/Social History: No Known Family HX Smoking Status: Former Smoker Hx Alcohol Use: Yes (SOCIALLY) Hx Substance Use: Yes (H/O OPIATE OD) Hx Substance Use Treatment: No <Stefani Blair - Last Filed: 04/28/18 14:05> Allergies/Home Meds <Stefani Blair - Last Filed: 04/28/18 14:05> <Darlin Torrez - Last Filed: 04/30/18 07:35> Allergies/Adverse Reactions: Allergies No Known Allergies Allergy (Verified 04/27/18 17:24) Home Medications: Home Meds Medication Instructions Recorded Confirmed RX: Isosorbide Mononitrate [Imdur] 60 mg PO DAILY 01/03/18 04/27/18 RX: Multivitamin/Iron/Folic Acid 1 tab PO DAILY 01/06/18 04/27/18 [Centrum Complete Multivit Tab] RX: Oxycodone HCl [Roxicodone] 30 mg PO PRN PRN 01/06/18 04/27/18 Review of Systems - Physician Review All systems were reviewed & negative as marked: Yes - Review of Systems Constitutional: Normal. absent: Fatigue, Fevers Eyes: Normal. absent: Vision Changes ENT: Normal, Other (tracheotomy tube ). absent: Sinus Congestion Respiratory: Normal. absent: SOB, Cough Cardiovascular: Normal. absent: Chest Pain, Palpitations Gastrointestinal: Nausea. absent: Abdominal Pain, Stool Changes, Constipation, Diarrhea, Vomiting, Appetite Changes, Hematochezia, Hematemesis Genitourinary Male: Hematuria. absent: Dysuria, Frequency Musculoskeletal: Back Pain Skin: Normal. absent: Rash, Cellulitis Neurological: Normal. absent: Headache, Dizziness, Focal Weakness Endocrine: Normal Hemo/Lymphatic: Normal Psychiatric: Normal <Stefani lBair - Last Filed: 04/28/18 14:05> Physical Exam Vital Signs Reviewed: Yes Vital Signs Temp Pulse Resp BP Pulse Ox 04/27/18 17:21 98 F 60 18 157/82 H 95 Temp Pulse Resp BP Pulse Ox 98 F 61 18 142/89 100 04/27/18 17:21 04/27/18 21:25 04/27/18 21:25 04/27/18 21:25 04/27/18 21:25 Temperature: Afebrile Blood Pressure: Normal Pulse: Regular Respiratory Rate: Normal Appearance: Positive for: Well-Appearing, Non-Toxic, Comfortable Pain Distress: None Mental Status: Positive for: Alert and Oriented X 3 - Systems Exam Head: Present: Atraumatic, Normocephalic Pupils: Present: PERRL Extroacular Muscles: Present: EOMI Conjunctiva: Present: Normal Mouth: Present: Moist Mucous Membranes Pharnyx: Present: Normal. No: ERYTHEMA, EXUDATE, TONSILS ENLARGED, Peritonsilar Swelling, Uvular Deviation, Soft Palate/Uvular Edema Nose (External): Present: Atraumatic Nose (Internal): Present: No Active Bleeding, Moist, Clear Mucous Neck: Present: Normal Range of Motion, Other (tracheotomy tube in place, no signs of infection). No: Meningeal Signs, Paraspinal Tenderness, Lympha denopathy Respiratory/Chest: Present: Clear to Auscultation, Good Air Exchange. No: Respiratory Distress, Accessory Muscle Use Cardiovascular: Present: Regular Rate and Rhythm, Normal S1, S2. No: Murmurs Abdomen: Present: Normal Bowel Sounds. No: Tenderness, Distention, Peritoneal Signs Back: Present: Normal Inspection. No: CVA Tenderness, Midline Tenderness, Paraspinal Tenderness Upper Extremity: Present: Normal Inspection, Normal ROM, NORMAL PULSES, Neurovascularly Intact, Capillary Refill < 2s. No: Cyanosis, Edema, Tenderness, Swelling Lower Extremity: Present: Normal Inspection, NORMAL PULSES, Normal ROM, Neurovascularly Intact. No: Edema, Tenderness, Swelling Neurological: Present: GCS=15, CN II-XII Intact, Speech Normal, Motor Func Grossly Intact, Normal Sensory Function, Normal Cerebellar Funct, Gait Normal, Memory Normal Skin: Present: Warm, Dry, Normal Color. No: Rashes Lymphatic: No: Cervical Adenopathy Psychiatric: Present: Alert, Oriented x 3, Normal Insight, Normal Concentration, Normal Affect, Normal Mood <Stefani Blair - Last Filed: 04/28/18 14:05> Vital Signs Temp Pulse Resp BP Pulse Ox 04/27/18 21:25 61 18 142/89 100 04/27/18 19:40 53 L 18 141/99 H 99 04/27/18 17:21 98 F 60 18 157/82 H 95 <Darlin Torrez - Last Filed: 04/30/18 07:35> Medical Decision Making ED Course and Treatment: 04/27/18 17:30 Initial Plan: * CBC * CMP * UA, culture * CT scan; stone search CBC: significant for WBC of 15.0 with left shift, otherwise wnl CMP: wnl UA: trace blood, nitrates CT: significant for bilateral 2mm non-obstructing stones and right sided cystic lesions 04/27/18 21:04 Discussed case and lab results with pt's PMD Dr. Isaac Magaña who states that patient does not meet admission criteria at this time. Recommends antibiotic course outpatient and followup with him and urology. 04/27/18 21:30 Plan of care discussed with patient, who agrees and understands the importance of appropriate followup. Pt given strict instructions on when to return to ER, including fever, N/V, worsening back or abdominal pain, or any other new or worsening symptoms. Impression: Nephrolithiasis Plan: * Cipro * Flomax * Continue home medications as prescribed * Followup PMD * Followup neurology * Return to ER with new/worsening symptoms - RAD Interpretation Narrative RAD Interpretations (Text): 04/27/18 20:39 CT Abd/Pelvis reviewed, shows: IMPRESSION: 1. Right renal as 3 to 4 cm cystic lesions are seen which are poorly evaluated due to lack of intravenous contrast. 2. No evidence of obstructive uropathy is seen. 3. 2 mm nonobstructing left and right renal calculi are seen. 4. Sigmoid colon diverticulosis without diverticulitis. 5. Question tiny gallstone and gallbladder neck. 6. Confluent groundglass opacities at the left lung base, nonspecific infectious or inflammatory process. Sanding Machine Tender: Radiologist <Stefani Blair - Last Filed: 04/28/18 14:05> - Lab Interpretations Microbiology Results: Microbiology Results 04/27/18 18:00 Urine Urine Culture - Final No Growth (<1,000 CFU/ML) Lab Results: 04/27/18 18:00 04/27/18 18:00 Lab Results 04/27/18 18:00: Sodium 137, Potassium 5.2 H, Chloride 99, Carbon Dioxide 27, Anion Gap 16, BUN 18, Creatinine 0.8, Est GFR ( Amer) > 60, Est GFR (Non- Af Amer) > 60, Random Glucose 108, Calcium 9.4, Total Bilirubin 0.4, AST 24, ALT 31, Alkaline Phosphatase 61, Total Protein 7.4, Albumin 4.1, Globulin 3.3, Albumin/Globulin Ratio 1.3 04/27/18 18:00: Urine Color Light red, Urine Appearance Clear, Urine pH 6.5, Ur Specific [place] 1.015, Urine Protein Negative, Urine Glucose (UA) Negative, Urine Ketones Negative, Urine Blood Trace-lysed H, Urine Nitrate Positive H, Urine Bilirubin Negative, Urine Urobilinogen 1.0 H, Ur Leukocyte Esterase Negative, Urine RBC 2 - 5, Urine WBC 2 - 5, Ur Epithelial Cells 1 - 3, Urine Bacteria Few 04/27/18 18:00: WBC 15.0 H D, RBC 4.75, Hgb 13.9 L D, Hct 41.6 L, MCV 87.6, MCH 29.3, MCHC 33.4, RDW 17.8 H, Plt Count 252, MPV 9.1, Gran % 85.1 H, Lymph % (Auto) 9.9 L, [place] % (Auto) 5.0, Eos % (Auto) 0.0 L, Baso % (Auto) 0.0, Gran # 12.76 H, Lymph # (Auto) 1.5, [place] # (Auto) 0.8 H, Eos # (Auto) 0.0, Baso # (Auto) 0.00 - RAD Interpretation Radiology Orders: 04/27/18 18:52 ABD & PELVIS W/O PO OR IV CONT [CT] Stat - Medication Orders Current Medication Orders: Discontinued Medications Ciprofloxacin (Cipro) 500 mg PO ONCE STA; Protocol Stop: 04/27/18 21:13 Last Admin: 04/27/18 21:25 Dose: 500 mg Tamsulosin HCl (Flomax) 0.4 mg PO STAT STA Stop: 04/27/18 21:12 Last Admin: 04/27/18 21:25 Dose: 0.4 mg <Darlin Torrez - Last Filed: 04/30/18 07:35> - PA / POLICE SPECIALIST / Resident Statement / has reviewed & agrees with the documentation as recorded. <Darlin Torrez - Last Filed: 04/30/18 07:35> Disposition/Present on Arrival - Present on Arrival Any Indicators Present on Arrival: No History of DVT/PE: No History of Uncontrolled Diabetes: No Urinary Catheter: No History of Decub. Ulcer: No History Surgical Site Infection Following: None - Disposition Have Diagnosis and Disposition been Completed?: Yes Disposition Time: 21:06 Patient Plan: Discharge <Stefani Blair - Last Filed: 04/28/18 14:05> <Darlin Torrez - Last Filed: 04/30/18 07:35> - Disposition Diagnosis: Nephrolithiasis Disposition: HOME/ ROUTINE Condition: IMPROVED Discharge Instructions (ExitCare): Kidney Stones in Adults Additional Instructions: Take flomax once daily for 1 week Take antibiotic once every 12 hours for 7 days Followup with urology within 2 days Followup with primary doctor within 2 days Continue home medications as prescribed Return to ER for any new or worsening symptoms Prescriptions: Ciprofloxacin HCl [Cipro] 500 mg PO Q12H #13 tablet Tamsulosin [Flomax] 0.4 mg PO DAILY #7 cap Referrals: Archana EDWARD,Isaac Jimenez MD [Primary Care Provider] - Follow up with primary Oliver Nuñez MD [Staff Provider] - Follow up with primary Forms: [employer] ([place]ux[place]ish), WORK NOTE
[2018-04-27 18:33] LABS: PH,URINE 6.5 (4.7-8.0); URINE BILIRUBIN NEGATIVE (NEGATIVE); URINE BLOOD TRACE-LYSED (NEGATIVE); URINE GLUCOSE (UA) NEGATIVE (NEGATIVE); URINE LEUKOCYTE ESTERASE NEGATIVE Leu/uL (NEGATIVE); URINE PROTEIN NEGATIVE mg/dL (<30 mg/dL)
[2018-04-27 18:34] LABS: GRAN # 12.76 (1.4-6.5); GRAN % 85.1 % (50.0-68.0); HEMOGLOBIN 13.9 g/dL (14.0-18.0); LYMPH # 1.5 (1.2-3.4); LYMPH % 9.9 % (22.0-35.0); MEAN CELL VOLUME 87.6 fl (80.0-105.0); MEAN CORPUSCULAR HEMOGLOBIN 29.3 pg (25.0-35.0); MEAN CORPUSCULAR HGB CONC 33.4 g/dl (31.0-37.0); MEAN PLATELET VOLUME 9.1 fl (7.0-11.0); MONO # 0.8 (0.1-0.6); RBC 4.75 10^6/uL (3.5-6.1); RED CELL DISTRIBUTION WIDTH 17.8 % (11.5-14.5)
[2018-04-27 18:36] LABS: URINE APPEARANCE CLEAR (CLEAR); URINE COLOR LIGHT RED (YELLOW)
[2018-04-27 18:44] LABS: ALB/GLOB RATIO 1.3 (1.1-1.8); ALBUMIN 4.1 g/dL (3.0-4.8); ALT/SGPT 31 U/L (7-56); AST/SGOT 24 U/L (17-59); BLOOD UREA NITROGEN 18 mg/dL (7-21); CALCIUM 9.4 mg/dL (8.4-10.5); GFR NON-AFRICAN AMERICAN > 60
[2018-04-27 18:46] LABS: URINE BACTERIA FEW (NEG)
[2018-04-27 21:28] VITALS: BP 142/89; PULSE 61; O2SAT 100
--- NOTE | 2018-04-28 09:08 | CT ---
Date of service: 04/27/2018 PROCEDURE: CT Abdomen and Pelvis without intravenous contrast HISTORY: stone search COMPARISON: None. TECHNIQUE: Technique. Contrast dose: Radiation dose: Total exam DLP = 1071.68 mGy-cm. This CT exam was performed using one or more of the following dose reduction techniques: Automated exposure control, adjustment of the mA and/or kV according to patient size, and/or use of iterative reconstruction technique. FINDINGS: LOWER THORAX: Nonspecific ground-glass density in the left lower lobe. LIVER: Unremarkable. No gross lesion or ductal dilatation. GALLBLADDER AND BILE DUCTS: Unremarkable. PANCREAS: Unremarkable. No gross lesion or ductal dilatation. SPLEEN: Unremarkable. ADRENALS: Unremarkable. No mass. KIDNEYS AND URETERS: bilateral nephrolithiasis with right renal cysts. VASCULATURE: Unremarkable. No aortic aneurysm. No aortic atherosclerotic calcification or mural plaque present. BOWEL: Sigmoid colon diverticulosis. No obstruction. No gross mural thickening. APPENDIX: Unremarkable. Normal appendix. PERITONEUM: Unremarkable. No free fluid. No free air. LYMPH NODES: Unremarkable. No enlarged lymph nodes. BLADDER: Unremarkable. REPRODUCTIVE: Unremarkable. BONES: Left hip arthroplasty streak artifact limits assessment of the pelvis. OTHER FINDINGS: None. IMPRESSION: Bilateral nephrolithiasis with right renal cyst. Sigmoid colon diverticulosis.
== END 2018-04-27 21:25 | disposition home or self-care (01) ==
LOC: ED 17:10
DX: N20.0 Calculus of kidney (principal); I25.10 Atherosclerotic heart disease of native coronary artery without angina pectoris; I10 Essential (primary) hypertension; Z87.891 Personal history of nicotine dependence

== ENCOUNTER 2018-05-04 14:10 | Emergency (ER) | payer MEDICARE ==
[2018-05-04 14:20] VITALS: RESP 18; BMI 35.2
[2018-05-04] MEDS ORDERED: Sodium Chloride 0.9% 1,000 ML IV STA (15:02)
[2018-05-04 15:25] LABS: URINE BILIRUBIN NEGATIVE (NEGATIVE); URINE BLOOD SMALL (NEGATIVE); URINE GLUCOSE (UA) NEGATIVE (NEGATIVE); URINE LEUKOCYTE ESTERASE NEGATIVE Leu/uL (NEGATIVE); URINE PROTEIN NEGATIVE mg/dL (<30 mg/dL); URINE UROBILINOGEN 0.2 E.U./dL (<1 E.U./dL)
[2018-05-04 15:27] LABS: URINE APPEARANCE CLEAR (CLEAR); URINE COLOR LIGHT RED (YELLOW)
--- NOTE | 2018-05-04 15:40 | ED PDOC ---
Arrival/HPI <Mao Moore - Last Filed: 05/04/18 17:33> - History of Present Illness Narrative History of Present Illness (Text): Patient is a 58 year old male with a past medical history of kidney stones, throat cancer s/p trach 2 weeks ago, HTN, CAD, PCI x 2 stents, Thoracic Aneurysm, dyslipidemia, hypogonadism, brain aneurysm (s/p coiling) and left knee replacement, right total hip replacement presents to the ED c/o intermittent bilateral flank pain x 2 days, associated with blood in the urine. Pt Denies fevers, chills, chest pain, sob, abdominal pain, vomiting, hematochezia, melena, abdominal pain, headache, dizziness, dysuria, frequency, penile discharge, penile lesions, penile trauma. Pt was seen on 04/27 for similar symptoms where an abdominal CT without contrast showed bilateral nephrolithiasis with renal cysts. Pt was discharged and followed up with Dr. Magaña who prescribed a m edication (name unknown as per pt). Pt has been taking roxycodone 30 mg PO without relief of pain. Denies history of STDs, HIV, not on immunosuppresive therapy. PMD: Archana PMH: kidney stones, throat cancer s/p trach 2 weeks ago, HTN, CAD, PCI x 2 stents, Thoracic Aneurysm, dyslipidemia, hypogonadism, brain aneurysm (s/p coiling) and left knee replacement, right total hip replacement PSH: brain aneurysm (s/p coiling) and left knee replacement, right total hip replacement Meds: See MAR Allx: NKDA Social hx: (+) etoh, (-) smoking, (-) illicit drug use Time/Duration: 1-3 hours Symptom Onset: Sudden Symptom Course: Worsening Severity Level: 10 <MaexiomyJimmy - Last Filed: 05/07/18 12:15> - General Chief Complaint: Male Genitourinary Time Seen by Provider: 05/04/18 14:36 Past Medical History - Provider Review Nursing Documentation Reviewed: Yes - Infectious Disease Hx of Infectious Diseases: None - Tetanus Immunization Tetanus Immunization: Unknown - Cardiac Hx Angina: (chest pain) - Pulmonary Hx Chronic Obstructive Pulmonary Disease (COPD): Yes - Neurological Hx Paralysis: No - HEENT Hx HEENT Disorder: Yes Hx Epistaxis: Yes Other/Comment: Throat cancer. Trach in place - Renal Hx Renal Disorder: No - Endocrine/Metabolic Hx Endocrine Disorders: No - Hematological/Oncological Hx Blood Transfusions: No - Integumentary Hx Dermatological Disorder: No - Musculoskeletal/Rheumatological Hx Musculoskeletal Disorders: Yes (TOTAL L KNEE W/TITANIUM,RIGHT HIP TOTAL REPLACEMENT) - Gastrointestinal Hx Gastrointestinal Disorders: Yes Other/Comment: CONSTIPATION - Genitourinary/Gynecological Hx Genitourinary Disorders: No - Psychiatric Hx Emotional Abuse: No Hx Physical Abuse: No Hx Substance Use: Yes (H/O OPIATE OD) - Surgical History Hx Cardiac Catheterization: Yes (2 stents) Other/Comment: Trach placement - Anesthesia Hx Anesthesia Reactions: No Hx Malignant Hyperthermia: No - Suicidal Assessment Feels Threatened In Home Enviroment: No <Jimmy Summers - Last Filed: 05/07/18 12:15> Family/Social History - Physician Review Nursing Documentation Reviewed: Yes Family/Social History: Unknown Family HX Smoking Status: Former Smoker Hx Alcohol Use: Yes (SOCIALLY) Hx Substance Use: Yes (H/O OPIATE OD) Hx Substance Use Treatment: No <Jimmy Summers - Last Filed: 05/07/18 12:15> Allergies/Home Meds <Mao Moore - Last Filed: 05/04/18 17:33> <Jimmy Summers - Last Filed: 05/07/18 12:15> Allergies/Adverse Reactions: Allergies No Known Allergies Allergy (Verified 04/27/18 17:24) Home Medications: Home Meds Medication Instructions Recorded Confirmed Isosorbide Mononitrate [Imdur] 60 mg PO DAILY 01/03/18 04/27/18 Multivitamin/Iron/Folic Acid 1 tab PO DAILY 01/06/18 04/27/18 [Centrum Complete Multivit Tab] Oxycodone HCl [Roxicodone] 30 mg PO PRN PRN 01/06/18 04/27/18 Review of Systems - Review of Systems Constitutional: Normal Eyes: Normal ENT: Normal Respiratory: Normal, Cough. absent: Sputum Cardiovascular: Normal Gastrointestinal: Diarrhea Genitourinary Male: Hematuria Musculoskeletal: Normal Skin: Normal Neurological: Normal Endocrine: Normal Hemo/Lymphatic: Normal Psychiatric: Normal <Jimmy Summers - Last Filed: 05/07/18 12:15> Physical Exam Vital Signs Temp Pulse Resp BP Pulse Ox 05/04/18 14:17 98.2 F 81 18 144/84 98 <SincereMao jack - Last Filed: 05/04/18 17:33> Vital Signs Temp Pulse Resp BP Pulse Ox 05/04/18 14:17 98.2 F 81 18 144/84 98 Temperature: Afebrile Blood Pressure: Normal Pulse: Regular Respiratory Rate: Normal Appearance: Positive for: Well-Appearing, Non-Toxic, Comfortable Pain Distress: Mild Mental Status: Positive for: Alert and Oriented X 3 - Systems Exam Head: Present: Atraumatic, Normocephalic Extroacular Muscles: Present: EOMI Conjunctiva: Present: Normal Mouth: Present: Moist Mucous Membranes, Other (oral thrush) Respiratory/Chest: Present: Clear to Auscultation. No: Respiratory Distress, Wheezes, Rales, Retracting, Rhonchi Cardiovascular: Present: Regular Rate and Rhythm, Normal S1, S2 Abdomen: Present: Normal Bowel Sounds. No: Tenderness, Distention Back: Present: Normal Inspection, CVA Tenderness (bilaterally) Upper Extremity: Present: Normal Inspection, NORMAL PULSES. No: Edema Lower Extremity: Present: Normal Inspection, NORMAL PULSES. No: Edema, CALF TENDERNESS Neurological: Present: GCS=15 Skin: Present: Warm Psychiatric: Present: Alert, Oriented x 3 <Jimmy Summers - Last Filed: 05/07/18 12:15> Medical Decision Making - Lab Interpretations Lab Results: 05/04/18 15:15 05/04/18 15:15 Lab Results 05/04/18 15:15: Sodium 136, Potassium 4.4, Chloride 103, Carbon Dioxide 23, Anion Gap 14, BUN 13, Creatinine 1.0, Est GFR ( Amer) > 60, Est GFR (Non- Af Amer) > 60, Random Glucose 105, Calcium 8.6, Total Bilirubin 0.5, AST 27, ALT 32, Alkaline Phosphatase 70, Total Protein 7.4, Albumin 4.0, Globulin 3.5, Albumin/Globulin Ratio 1.1 05/04/18 15:15: WBC 9.0, RBC 5.02, Hgb 14.5, Hct 43.9, MCV 87.5, MCH 28.9, MCHC 33.0, RDW 17.7 H, Plt Count 231, MPV 9.0, Gran % 72.4 H, Lymph % (Auto) 17.9 L, [place] % (Auto) 7.1 H, Eos % (Auto) 2.5, Baso % (Auto) 0.1, Gran # 6.49, Lymph # (Auto) 1.6, [place] # (Auto) 0.6, Eos # (Auto) 0.2, Baso # (Auto) 0.01 05/04/18 15:00: Urine Color Light red, Urine Appearance Clear, Urine pH 6.0, Ur Specific [place] [employer] [employer] 1.010, Urine Protein Negative, Urine Glucose (UA) Negative, Urine Ketones Negative, Urine Blood Small H, Urine Nitrate Positive H, Urine Bilirubin Negative, Urine Urobilinogen 0.2, Ur Leukocyte Esterase Negative, Urine RBC 2 - 5, Urine WBC 0 - 2, Ur Epithelial Cells 0 - 2, Urine Bacteria Trace - RAD Interpretation Radiology Orders: 05/04/18 15:00 RENAL [US] Stat - Medication Orders Current Medication Orders: Discontinued Medications Sodium Chloride (Sodium Chloride 0.9%) 1,000 mls @ 999 mls/hr IV .Q1H1M STA Stop: 05/04/18 16:02 Last Admin: 05/04/18 15:23 Dose: 999 mls/hr eMAR Start Stop Document 05/04/18 15:23 GMI (Rec: 05/04/18 15:24 GMI [id number]) Intravenous Solution Start Date 05/04/18 Start Time 15:23 End Date 05/04/18 End time 16:25 Total Infusion Time 62 Ketorolac Tromethamine (Toradol) 30 mg IVP STAT STA Stop: 05/04/18 15:02 Last Admin: 05/04/18 15:24 Dose: 30 mg MAR Pain Assessment Document 05/04/18 15:24 GMI (Rec: 05/04/18 15:25 GMI [id number]) Pain Reassessment Is this a pain reassessment? Yes Sleep Is patient sleeping during reassessment? No Presence of Pain Presence of Pain Yes Location Pain Location Body Site Throat Description Description Sharp Intensity of Pain at present 5 Alleviating Factors/Management Distraction Techniques Alleviating Factors Distraction IVP Administration Document 05/04/18 15:24 GMI (Rec: 05/04/18 15:25 GMI [id number]) Charges for Administration # of IVP Administrations 1 <Mao Moore - Last Filed: 05/04/18 17:33> ED Course and Treatment: Toradol 30 mg IVP for pain. UA with microscopy. Bilateral renal US. Will re-evaluate. Reassessment Condition: Re-examined, Improved - Lab Interpretations Lab Results: Lab Results 05/04/18 15:00: Urine Color Light red, Urine Appearance Clear, Urine pH 6.0, Ur Specific [place] [employer] 1.010, Urine Protein Negative, Urine Glucose (UA) Negative, Urine Ketones Negative, Urine Blood Small H, Urine Nitrate Positive H, Urine Bilirubin Negative, Urine Urobilinogen 0.2, Ur Leukocyte Esterase Negative, Urine RBC Pending, Urine WBC Pending I have reviewed the lab results: Yes Interpretation: All labs normal - RAD Interpretation Narrative RAD Interpretations (Text): Accession No. : [id number] Patient Name / ID : BAL Desai / [id number] Exam Date : 05/04/2018 15:34:10 ( Approved ) Study Comment : Sex / Age : M / 58Y Creator : Pan Pablo MD Dictator : Pan Pablo MD Engineering [employer]lies Sales : Pick Up And Delivery Driver : Pan Pablo MD Approver2 : Report Date : 05/04/2018 16:45:25 My Comment : Date of service: 05/04/2018 PROCEDURE: Ultrasound of the Kidneys HISTORY: recent renal calculi w/ cysts COMPARISON: None available. TECHNIQUE: Sonogram of the kidneys. FINDINGS: RIGHT KIDNEY: Measures: 12.52 x 5.30 x 5.67 cm. Normal in size, contour and echogenicity. No stone, solid mass lesion or hydronephrosis visualized. There is a 3 cm cyst in the right kidney lower pole. There is a nonobstructing 4 mm stone in the upper pole LEFT KIDNEY: Measures: 13.72 x 5.27 x 5.75 cm. Normal in size, contour and echogenicity. No stone, solid mass lesion or hydronephrosis visualized. OTHER FINDINGS: None. IMPRESSION: Nonobstructing 4 mm stone in the upper pole of the right kidney. No evidence of hydronephrosis Radiology Orders: 05/04/18 15:00 RENAL [US] Stat - EKG Interpretation EKG Interpretation (Text): EKG shows NSR at 78 with premature atrial complexes, left anterior fasicular block, no acute STTW changes; MT is 13, QTc is 424; as read by ED attending. Interpreted by ED Physician: Yes - Medication Orders Current Medication Orders: Sodium Chloride (Sodium Chloride 0.9%) 1,000 mls @ 999 mls/hr IV .Q1H1M STA Stop: 05/04/18 16:02 Last Admin: 05/04/18 15:23 Dose: 999 mls/hr eMAR Start Stop Document 05/04/18 15:23 GMI (Rec: 05/04/18 15:24 GMI [id number]) Intravenous Solution Start Date 05/04/18 Start Time 15:23 End Date 05/04/18 End time 16:25 Total Infusion Time 62 Discontinued Medications Ketorolac Tromethamine (Toradol) 30 mg IVP STAT STA Stop: 05/04/18 15:02 Last Admin: 05/04/18 15:24 Dose: 30 mg MAR Pain Assessment Document 05/04/18 15:24 GMI (Rec: 05/04/18 15:25 GMI [id number]) Pain Reassessment Is this a pain reassessment? Yes Sleep Is patient sleeping during reassessment? No Presence of Pain Presence of Pain Yes Location Pain Location Body Site Throat Description Description [place] Intensity of Pain at present 5 Alleviating Factors/Management Distraction Techniques Alleviating Factors Distraction IVP Administration Document 05/04/18 15:24 GMI (Rec: 05/04/18 15:25 GMI [id number]) Charges for Administration # of IVP Administrations 1 <Jimmy Summers - Last Filed: 05/07/18 12:15> Disposition/Present on Arrival - Present on Arrival Any Indicators Present on Arrival: No - Disposition Have Diagnosis and Disposition been Completed?: Yes Disposition Time: 17:04 Patient Plan: Discharge <Mao Moore - Last Filed: 05/04/18 17:33> - Present on Arrival Any Indicators Present on Arrival: No History of DVT/PE: No History of Uncontrolled Diabetes: No Urinary Catheter: No History of Decub. Ulcer: No History Surgical Site Infection Following: None - Disposition Have Diagnosis and Disposition been Completed?: Yes Patient Plan: Discharge <Jimmy Summers - Last Filed: 05/07/18 12:15> - Disposition Diagnosis: Renal colic, Hematuria Disposition: HOME/ ROUTINE Condition: IMPROVED Discharge Instructions (ExitCare): Renal Colic (DC), Blood in the Urine (Hematuria), Adult (DC) Print Language: ARABIC Prescriptions: Nystatin [Mycostatin] 500,000 unit PO Q8H 10 Days #30 tab Referrals: Lui Muhammad MD [Staff Provider] - Follow up with primary Norberto Edwards MD [Staff Provider] - Follow up with primary Artemio Josue MD [Staff Provider] - Follow up with primary Forms: [facility] (Mongolian), WORK NOTE
[2018-05-04 15:52] LABS: BASO # 0.01 K/mm3 (0.0-2.0); BASO % 0.1 % (0.0-3.0); EOS # 0.2 (0.0-0.7); EOS % 2.5 % (1.5-5.0); GRAN # 6.49 (1.4-6.5); GRAN % 72.4 % (50.0-68.0); HEMOGLOBIN 14.5 g/dL (14.0-18.0); LYMPH # 1.6 (1.2-3.4); LYMPH % 17.9 % (22.0-35.0); MEAN CELL VOLUME 87.5 fl (80.0-105.0); MEAN CORPUSCULAR HEMOGLOBIN 28.9 pg (25.0-35.0); MONO # 0.6 (0.1-0.6); MONO % 7.1 % (1.0-6.0); RBC 5.02 10^6/uL (3.5-6.1); RED CELL DISTRIBUTION WIDTH 17.7 % (11.5-14.5)
[2018-05-04 16:05] LABS: URINE EPITHELIAL CELLS 0 - 2 /hpf (0-5); URINE WBC 0 - 2 /hpf (0-6)
[2018-05-04 16:06] LABS: URINE BACTERIA TRACE (NEG)
[2018-05-04 16:24] LABS: ALB/GLOB RATIO 1.1 (1.1-1.8); ALT/SGPT 32 U/L (7-56); AST/SGOT 27 U/L (17-59); BLOOD UREA NITROGEN 13 mg/dL (7-21); CALCIUM 8.6 mg/dL (8.4-10.5); GFR NON-AFRICAN AMERICAN > 60
--- NOTE | 2018-05-04 16:49 | US ---
Date of service: 05/04/2018 PROCEDURE: Ultrasound of the Kidneys HISTORY: recent renal calculi w/ cysts COMPARISON: None available. TECHNIQUE: Sonogram of the kidneys. FINDINGS: RIGHT KIDNEY: Measures: 12.52 x 5.30 x 5.67 cm. Normal in size, contour and echogenicity. No stone, solid mass lesion or hydronephrosis visualized. There is a 3 cm cyst in the right kidney lower pole. There is a nonobstructing 4 mm stone in the upper pole LEFT KIDNEY: Measures: 13.72 x 5.27 x 5.75 cm. Normal in size, contour and echogenicity. No stone, solid mass lesion or hydronephrosis visualized. OTHER FINDINGS: None. IMPRESSION: Nonobstructing 4 mm stone in the upper pole of the right kidney. No evidence of hydronephrosis
[2018-05-04 17:59] VITALS: BP 132/108; PULSE 68; TEMP 98.6; O2SAT 96
--- NOTE | 2018-05-05 14:50 | CARD ---
APPROVED REPORT Date of service: 05/04/2018 EKG Measurement Heart [id number] OH 132P-3 [id number] <Conclusion> Sinus rhythm with premature atrial complexes Left anterior fascicular block Abnormal ECG
== END 2018-05-04 17:58 | disposition home or self-care (01) ==
LOC: ED 14:10
DX: N23 Unspecified renal colic (principal); R31.9 Hematuria, unspecified; E78.5 Hyperlipidemia, unspecified; I10 Essential (primary) hypertension; I25.10 Atherosclerotic heart disease of native coronary artery without angina pectoris; Z87.891 Personal history of nicotine dependence; J44.9 Chronic obstructive pulmonary disease, unspecified
CPT/HCPCS: 76770; 80053; 81001; 85025; 87086; 93005; 96361; 96374; 99283; J1885; J7030

== ENCOUNTER 2018-08-31 01:04 | Observation (INO) | payer MEDICARE ==
[2018-08-31 01:05] VITALS: BMI 35.2
[2018-08-31] MEDS ORDERED: Morphine 4 mg/ml ISec IVP STA ×2 (01:31→03:05)
[2018-08-31] MEDS ORDERED: Sodium Chloride 0.9% 1,000 ML IV STA (01:33)
--- NOTE | 2018-08-31 01:36 | ED PDOC ---
Arrival/HPI - General Chief Complaint: Chest Pain Time Seen by Provider: 08/31/18 01:06 Historian: Patient - History of Present Illness Narrative History of Present Illness (Text): 08/31/18 01:35 58 year old male, with past medical history of kidney stones, throat cancer s/p trach last week, HTN, CAD, PCI x 2 stents, Thoracic Aneurysm, dyslipidemia, hypogonadism, brain aneurysm (s/p coiling), left knee replacement, right total hip replacement, and NKDA presents to emergency department complaining of intermittent chest pain since 30 minutes ago. Patient describes pain as non- radiating, and reports taking pain medication twice today. Patient notes two stents and anuerysms for which he is monitored every 6 months and is also one month out of chemo and radiation. Patient denies any fevers, chills, headache, dizziness, shortness of breath, cough, abdominal pain, nausea, vomiting, diarrhea, back pain, neck pain, or any other complaints. Time/Duration: Other (30 mins) Symptom Onset: Gradual Symptom Course: Unchanged Activities at Onset: Light Context: Home Past Medical History - Provider Review Nursing Documentation Reviewed: Yes - Infectious Disease Hx of Infectious Diseases: None - Tetanus Immunization Tetanus Immunization: Unknown - Cardiac Hx Angina: (chest pain) Other/Comment: ascending arotic aneurysm - Pulmonary Hx Chronic Obstructive Pulmonary Disease (COPD): Yes Other/Comment: throat cancer- 1 month free of chemo and radiation - Neurological Hx Paralysis: No Other/Comment: hx brain aneurysm - HEENT Hx HEENT Disorder: Yes Hx Epistaxis: Yes Other/Comment: Throat cancer. Trach in place - Renal Hx Renal Disorder: No - Endocrine/Metabolic Hx Endocrine Disorders: No - Hematological/Oncological Hx Blood Transfusions: No - Integumentary Hx Dermatological Disorder: No - Musculoskeletal/Rheumatological Hx Musculoskeletal Disorders: Yes (TOTAL L KNEE W/TITANIUM,RIGHT HIP TOTAL REPLACEMENT) - Gastrointestinal Hx Gastrointestinal Disorders: Yes Other/Comment: CONSTIPATION - Genitourinary/Gynecological Hx Genitourinary Disorders: No - Psychiatric Hx Emotional Abuse: No Hx Physical Abuse: No Hx Substance Use: Yes (H/O OPIATE OD) - Surgical History Hx Cardiac Catheterization: Yes (2 stents) Other/Comment: Trach placement. 4 rotator cuff surgery - Anesthesia Hx Anesthesia: No Hx Anesthesia Reactions: No Hx Malignant Hyperthermia: No - Suicidal Assessment Feels Threatened In Home Enviroment: No Family/Social History - Physician Review Nursing Documentation Reviewed: Yes Family/Social History: Unknown Family HX Smoking Status: Former Smoker Hx Alcohol Use: Yes (SOCIALLY) Hx Substance Use: Yes (H/O OPIATE OD) Hx Substance Use Treatment: No Allergies/Home Meds Allergies/Adverse Reactions: Allergies No Known Allergies Allergy (Verified 08/31/18 01:18) Home Medications: Home Meds Medication Instructions Recorded Confirmed Isosorbide Mononitrate [Imdur] 60 mg PO DAILY 01/03/18 08/31/18 Oxycodone HCl [Roxicodone] 30 mg PO PRN PRN 01/06/18 08/31/18 Lisinopril [Zestril] 40 mg PO DAILY 08/31/18 08/31/18 Review of Systems - Physician Review All systems were reviewed & negative as marked: Yes - Review of Systems Constitutional: absent: Fevers Respiratory: absent: SOB, Cough Cardiovascular: Chest Pain Gastrointestinal: absent: Abdominal Pain, Diarrhea, Nausea, Vomiting Genitourinary Male: absent: Urinary Output Changes Musculoskeletal: absent: Back Pain, Neck Pain Skin: absent: Rash Neurological: absent: Headache, Dizziness Physical Exam Vital Signs Reviewed: Yes Vital Signs Temp Pulse Resp BP Pulse Ox 08/31/18 01:18 98.1 F 60 18 97/62 L 96 Temperature: Afebrile Blood Pressure: Normal Pulse: Regular Respiratory Rate: Normal Appearance: Positive for: Well-Appearing, Non-Toxic, Comfortable Pain Distress: None Mental Status: Positive for: Alert and Oriented X 3 - Systems Exam Head: Present: Atraumatic, Normocephalic Pupils: Present: PERRL Extroacular Muscles: Present: EOMI Conjunctiva: Present: Normal Mouth: Present: Moist Mucous Membranes Neck: Present: Normal Range of Motion Respiratory/Chest: Present: Clear to Auscultation, Good Air Exchange. No: Respiratory Distress, Accessory Muscle Use Cardiovascular: Present: Regular Rate and Rhythm, Normal S1, S2. No: Murmurs Abdomen: No: Tenderness, Distention, Peritoneal Signs Back: Present: Normal Inspection Upper Extremity: Present: Normal Inspection. No: Cyanosis, Edema Lower Extremity: Present: Normal Inspection. No: Edema Neurological: Present: GCS=15, CN II-XII Intact, Speech Normal Skin: Present: Warm, Dry, Normal Color. No: Rashes Psychiatric: Present: Alert, Oriented x 3, Normal Insight, Normal Concentration Medical Decision Making ED Course and Treatment: 08/31/18 01:43 Impression: 58 year old male presents to emergency department complaining of chest pain since 30 minutes ago. Differential Diagnosis included but are not limited to: -- aortic dissection -- triple A rupture --ACS Plan: -- CT Angiography Dissection --EKG -- Labs -- Chest X-ray -- Aspirin -- Morphine -- IV Fluids -- Urinalysis -- Reassess and disposition Prior Visits: Notes and results from previous visits were reviewed. Progress Notes: 08/31/18 03:00 Labs reviewed with negative troponin and unremarkable EKG. Patient states he still has chest pain and requests more morphine. Discussed patient's clinical condition discussed with Dr. Christa Levine(PCP) who accepts patient onto his service for observation. - Lab Interpretations Lab Results: 08/31/18 01:20 08/31/18 01:20 Lab Results 08/31/18 02:20: Urine Color Light yellow, Urine Appearance Clear, Urine pH 6.0, Ur Specific [place] <= 1.005, Urine Protein Negative, Urine Glucose (UA) Negative, Urine Ketones Negative, Urine Blood Negative, Urine Nitrate Negative, Urine Bilirubin Negative, Urine Urobilinogen 0.2, Ur Leukocyte Esterase Negative 08/31/18 01:20: Sodium 136, Potassium 4.2, Chloride 101, Carbon Dioxide 27, Anion Gap 12, BUN 20, Creatinine 0.8, Est GFR ( Amer) > 60, Est GFR (Non- Af Amer) > 60, Random Glucose 81, Calcium 9.2, Magnesium 1.9, Total Bilirubin 0.3, AST 22, ALT 19, Alkaline Phosphatase 51, Troponin I < 0.01, NT-Pro-B Natriuret Pep 124, Total Protein 7.0, Albumin 4.1, Globulin 2.9, Albumin/Globulin Ratio 1.4 08/31/18 01:20: PT 11.5, INR 1.04, APTT 32.1 08/31/18 01:20: WBC 3.4 L D, RBC 3.81, Hgb 11.4 L D, Hct 34.8 L, MCV 91.3 D, MCH 29.9, MCHC 32.8, RDW 19.4 H, Plt Count 160, MPV 8.7, Neut % (Auto) 55.9, Lymph % (Auto) 25.9, [place] % (Auto) 12.8 H, Eos % (Auto) 5.1 H, Baso % (Auto) 0.3, Lymph # (Auto) 0.9 L, [place] # (Auto) 0.4, Eos # (Auto) 0.2, Baso # (Auto) 0.01, Absolute Neuts (auto) 1.88 I have reviewed the lab results: Yes - RAD Interpretation Narrative RAD Interpretations (Text): 08/31/18 02:45 CT Angiography Dissection: IMPRESSION: 1. There is coronary artery calcification. 2. The heart is mildly enlarged. 3. The thoracic aorta is mildly atherosclerotic and mildly tortuous without aneurysm. The abdominal aorta is mildly atherosclerotic and mildly tortuous without aneurysm. There is no evidence for thoracic or abdominal aortic dissection as clinically placed and. 4. There is partial bony fusion at L4-L5. There is mild deformity of the endplates at the L3-L4 level which appears chronic. There is mild anterior wedging of L1. This is most probably chronic. Please correlate clinically. If indicated, these findings could be further evaluated with MRI. Electronically signed on Aug 31, 2018 2:43:37 AM EST by: Lebron Shepard M.D., CHARLES Certified By [facility] & [facility] Fellowship Trained MRI and CT Specialist Radiology Orders: 08/31/18 01:18 CHEST PORTABLE [RAD] Stat 08/31/18 01:29 ANGIOGRAPHY DISECTION PROTOCOL [CT] Stat Leasing Machine Tender: Radiologist - EKG Interpretation EKG Interpretation (Text): 08/31/18 04:22 EKG: Ordered, reviewed, and independently interpreted the EKG. Rate : 62 BPM Rhythm : NSR Interpretation : No ST-segment elevations, no T-wave inversions Interpreted by ED Physician: Yes Type: 12 lead EKG - Medication Orders Current Medication Orders: Aspirin (Aspirin Chewable) 81 mg PO STAT STA Stop: 08/31/18 01:32 Sodium Chloride (Sodium Chloride 0.9%) 1,000 mls @ 999 mls/hr IV .Q1H1M STA Stop: 08/31/18 02:33 Morphine Sulfate (Morphine) 4 mg IVP STAT STA Stop: 08/31/18 01:32 - Scribe Statement The provider has reviewed the documentation as recorded by the Scribe Karen Humphries All medical record entries made by the Scribe were at my direction and personally dictated by me. I have reviewed the chart and agree that the record accurately reflects my personal performance of the history, physical exam, medical decision making, and the department course for this patient. I have also personally directed, reviewed, and agree with the discharge instructions and disposition. Disposition/Present on Arrival - Present on Arrival Any Indicators Present on Arrival: No History of DVT/PE: No History of Uncontrolled Diabetes: No Urinary Catheter: No History of Decub. Ulcer: No History Surgical Site Infection Following: None - Disposition Have Diagnosis and Disposition been Completed?: Yes Diagnosis: Chest pain Disposition: HOSPITALIZED Disposition Time: 03:06 Patient Plan: Admission Patient Problems: Current Active Problems Problem Status Onset Chest pain Acute Condition: FAIR
[2018-08-31 02:00] LABS: ALB/GLOB RATIO 1.4 (1.1-1.8); ALBUMIN 4.1 g/dL (3.0-4.8); ALT/SGPT 19 U/L (7-56); AST/SGOT 22 U/L (17-59); BLOOD UREA NITROGEN 20 mg/dL (7-21); CALCIUM 9.2 mg/dL (8.4-10.5); GFR NON-AFRICAN AMERICAN > 60
[2018-08-31 02:11] LABS: B-TYPE NATRIURETIC PEPTIDE 124 pg/mL (0-450); TROPONIN I < 0.01 ng/mL
[2018-08-31 02:15] LABS: BASO # 0.01 K/mm3 (0.0-2.0); BASO % 0.3 % (0.0-3.0); EOS # 0.2 (0.0-0.7); EOS % 5.1 % (1.5-5.0); HEMOGLOBIN 11.4 g/dL (14.0-18.0); LYMPH # 0.9 (1.2-3.4); LYMPH % 25.9 % (22.0-35.0); MEAN CELL VOLUME 91.3 fl (80.0-105.0); MEAN CORPUSCULAR HEMOGLOBIN 29.9 pg (25.0-35.0); MEAN CORPUSCULAR HGB CONC 32.8 g/dl (31.0-37.0); MEAN PLATELET VOLUME 8.7 fl (7.0-11.0); MONO # 0.4 (0.1-0.6); MONO % 12.8 % (1.0-6.0); RBC 3.81 10^6/uL (3.5-6.1); RED CELL DISTRIBUTION WIDTH 19.4 % (11.5-14.5); WHITE BLOOD COUNT 3.4 10^3/uL (4.5-11.0)
[2018-08-31 02:20] LABS: INR 1.04; PARTIAL THROMBOPLASTIN TIME 32.1 Seconds (26.9-38.3); PROTHROMBIN TIME 11.5 SECONDS (9.4-12.5)
[2018-08-31 02:38] LABS: URINE BILIRUBIN NEGATIVE (NEGATIVE); URINE BLOOD NEGATIVE (NEGATIVE); URINE GLUCOSE (UA) NEGATIVE (NEGATIVE); URINE LEUKOCYTE ESTERASE NEGATIVE Leu/uL (NEGATIVE); URINE PROTEIN NEGATIVE mg/dL (<30 mg/dL); URINE UROBILINOGEN 0.2 E.U./dL (<1 E.U./dL)
[2018-08-31 02:49] LABS: URINE APPEARANCE CLEAR (CLEAR); URINE COLOR LIGHT YELLOW (YELLOW)
[2018-08-31 03:23] VITALS: O2SAT 97
[2018-08-31 06:55] VITALS: RESP 18; TEMP 97.9
[2018-08-31] MEDS ORDERED: oxyCODONE 30 mg Immediate Release Tab PO PRN (06:59)
[2018-08-31] MEDS ORDERED: Metoprolol Succinate 25 mg XL Tab PO SCH (08:00)
[2018-08-31 08:44] VITALS: BP 108/71
--- NOTE | 2018-08-31 09:08 | RAD ---
HISTORY: chest pain COMPARISON: Chest x-ray performed 03/18/18 TECHNIQUE: Chest, one view. FINDINGS: LUNGS: No focal consolidation. Please note that chest x-ray has limited sensitivity for the detection of pulmonary masses. PLEURA: No significant pleural effusion identified. No definite pneumothorax . CARDIOVASCULAR: Heart size appears top normal. Ectatic aorta containing atherosclerotic calcifications. OSSEOUS STRUCTURES: Degenerative changes of the spine and shoulders. Acromioclavicular arthropathy. VISUALIZED UPPER ABDOMEN: Unremarkable. OTHER FINDINGS: None. IMPRESSION: No focal consolidation.
[2018-08-31 11:26] VITALS: PULSE 58
--- NOTE | 2018-08-31 13:48 | CT ---
Date of service: 08/31/2018 CT Dissection protocol Indication: h/o AAA w/ chest pain(scan PRIOR to chem rslts) Technique: Contiguous axial images were obtained through the chest/abdomen/pelvis without and with intravenous contrast enhancement utilizing dissection protocol technique. Sagittal and coronal reconstructions were generated and reviewed. This CT exam was performed using 1 or more of the following dose reduction techniques: Automated exposure control, adjustment of the MAA and/or kV according to patient size, and/or use of iterative reconstruction technique. Radiation dose (DLP): 1684.38 MGy-cm. Contrast: CT abdomen pelvis without contrast performed 04/19/18 Findings: Visualized portions of the inferior thyroid gland appear unremarkable. The mediastinal and hilar vascular structures appear within normal limits. Cardiomegaly. No evidence of thoracic aorta dissection or aneurysmal dilatation. No focal consolidation. No pleural effusion. No pneumothorax. Atherosclerotic calcifications of the aorta branches. There is normal course and contour of the abdominal aorta and common iliac arteries. Hypoattenuation of the liver compatible with hepatic steatosis. The pancreas, spleen, adrenal glands, and gallbladder appear unremarkable. The kidneys enhance symmetrically without evidence of hydronephrosis or obstructing renal calculi. No enlarged abdominal lymphadenopathy is identified. The stomach is nondistended. Visualized bowel loops appear within normal limits of caliber without evidence of obstruction. The appendix appears normal. No inflammatory changes are seen in the right lower quadrant to suggest acute appendicitis. No definite free air. The urinary bladder appears unremarkable. No significant pelvic free fluid is identified. Streak artifact from right hip arthroplasty. Osseous demineralization. Multilevel degenerative changes most severe at the lower lumbar spine. Bony fusion at L4-L5. Posterior osteophyte formation most prominently resulting in narrowing the central canal at L1-L2 and L3-L4. Impression: No aneurysmal dilatation or evidence of dissection involving the thoracic or abdominal aorta. Additional findings as above. Preliminary impression was provided by [employer].
--- NOTE | 2018-08-31 14:37 | CARD ---
APPROVED REPORT Date of service: 08/31/2018 EKG Measurement Heart [id number] OR [id number] <Conclusion> Normal sinus rhythm Normal ECG
--- NOTE | 2018-08-31 15:30 | HP ---
HISTORY OF PRESENT ILLNESS: The patient is a 58-year-old man with multiple medical comorbidities including CAD s/p PCI with stent placement, hypertension, hyperlipidemia and thoracic aortic aneurysm who presented with a 1 day history of chest discomfort. The patient was in his usual state of health until approximately 2 days prior to presentation to the ED. He was outside shoveling snow and the following day he developed a dull, left-sided chest pain. He has recently been undergoing treatment for newly diagnosed tongue cancer and has not been physically active for the past 6 months. He attributed his symptoms to chest wall pain given his deconditioned state but due to his cardiac history he opted for ED evaluation. In the ED he was afebrile and hemodynamically stable. An initial troponin was less than 0.01. He was subsequently admitted to the remote telemetry [facility] to rule out an acute coronary syndrome. PAST MEDICAL HISTORY: As per HPI, also cerebral aneurysm s/p coiling, lumbosacral radiculopathy and tongue cancer s/p chemotherapy s/p radiation therapy s/p tracheostomy with reversal. PAST SURGICAL HISTORY: As per HPI, also multiple orthopedic spine surgeries with diskectomy and fusion, bilateral knee arthroscopies, left total knee replacement, repair of right shoulder labrum tear, left hip replacement and placement of tracheostomy with reversal. ALLERGIES: NKDA. MEDICATIONS: Aspirin 81 mg p.o. daily, Lipitor 40 mg p.o. daily, Imdur 60 mg p.o. daily, Toprol XL 25 mg p.o. daily, Lisinopril 40 mg p.o. daily, Prevacid 20 mg p.o. daily and Oxycodone 30 mg p.o. q. 6 hours p.r.n. pain. FAMILY HISTORY: Significant for diabetes, hypertension and CAD. SOCIAL HISTORY: The patient reports a former 20 pack-year smoking historyvand social alcohol use. He denies illicit drug abuse. REVIEW OF SYSTEMS: A 12-point review of systems is negative except as per HPI. PHYSICAL EXAMINATION: VITAL SIGNS: Temperature 97.9, pulse 50, blood pressure 108/71, respiratory rate 18 and oxygen saturation 97% on room air. GENERAL: No apparent distress. HEENT: PERRL, EOMI. No scleral icterus. No conjunctival pallor. Poor dentition is noted. NECK: No JVD. No bruits. Healing tracheostomy site. LUNGS: Clear to auscultation. CARDIOVASCULAR: Regular rate and rhythm. Normal S1 and S2. ABDOMEN: Normoactive bowel sounds, soft, nontender and nondistended. EXTREMITIES: No edema. NEUROLOGIC: Awake, alert and oriented x 3. No focal motor deficits. LABORATORY DATA: WBC 3.4, hemoglobin 11.4, hematocrit 35 and platelets 160. Chemistry reviewed and unremarkable. Troponin < 0.01. ASSESSMENT: The patient is a 58-year-old man with multiple medical comorbidities including CAD s/p PCI with stent placement, hypertension, hyperlipidemia and thoracic aortic aneurysm who presented with a several day history of chest discomfort and was admitted to rule out an acute coronary syndrome. PLAN: 1. Chest wall pain, etiology likely musculoskeletal in nature with low suspicion for ACS. Initial troponin is negative. We will repeat a second troponin and if this is negative the patient will be discharged to home. 2. CAD s/p PCI with stent placement. Continue Aspirin 81 mg p.o. daily, Lipitor 40 mg p.o. daily and Toprol XL 25 mg daily. 3. Hypertension. Blood pressure borderline low, likely secondary to patient's significant weight loss. We will discontinue Lisinopril. Continue Toprol XL 25 mg p.o. daily and Imdur 60 mg p.o. daily. The patient will follow upon discharge for a BP check and further medication adjustments will be made as needed. 4. Hyperlipidemia. Continue Lipitor 40 mg p.o. daily. 5. GERD. Continue Pepcid 20 mg p.o. daily. 6. Lumbosacral radiculopathy. Continue Oxycodone 30 mg p.o. q. 6 hours p.r.n. pain. 7. Thoracic aortic aneurysm. CT imaging reviewed and stable. 8. Tongue cancer s/p chemotherapy s/p radiation therapy s/p tracheostomy with reversal. The patient if followed at [facility]. 9. Prophylaxis. Continue Pepcid for GI prophylaxis. DVT prophylaxis is not indicated as the patient is ambulatory. CODE STATUS: Full code. Isaac Magaña MD [facility]
--- NOTE | 2018-09-01 09:59 | DS ---
ADMISSION DIAGNOSIS: Chest pain, rule out acute coronary syndrome. DISCHARGE DIAGNOSIS: Musculoskeletal chest wall pain. SECONDARY DIAGNOSES: CAD s/p PCI with stent placement, hypertension, hyperlipidemia, thoracic aortic aneurysm, GERD, cerebral aneurysm s/p coiling, sciatica, carcinoma of the base of the tongue s/p chemotherapy s/p radiation therapy s/p tracheostomy with reversal. CONSULTATIONS: None. IMAGING STUDIES: 1. Chest x-ray demonstrated no active disease. 2. CT of the chest with IV contrast demonstrated no evidence of aortic dissection or pulmonary embolism. DIAGNOSTIC STUDIES: None. PROCEDURES: None. HISTORY OF PRESENT ILLNESS: The patient is a 58-year-old man with multiple medical comorbidities including CAD s/p PCI with stent placement, hypertension, hyperlipidemia and thoracic aortic aneurysm who presented with a 1 day history of chest discomfort. The patient was in his usual state of health until approximately 2 days prior to presentation to the ED when he was outside [employer] snow. The following day he developed a dull left-sided chest pain. He has recently been undergoing treatment for newly diagnosed tongue cancer and has not been physically active for the past 6 months. He attributed his symptoms to chest wall pain due to his deconditioned state but given his cardiac history, he opted for ED evaluation. In the ED he was afebrile, hemodynamically stable and with unremarkable labs, including an initial troponin of less than 0.01. He was subsequently admitted to the remote telemetry [facility] to rule out an acute coronary syndrome. HOSPITAL COURSE: Upon admission to the remote telemetry [facility] he was restarted on his home medications. Cardiac enzymes were cycled and negative. The patient reported resolution of his chest discomfort with his analgesic medications and was ambulating around the remote telemetry [facility] with no recurrence of his chest discomfort. He was advised that the etiology of his chest pain was likely musculoskeletal in nature. Given his negative cardiac biomarkers he was deemed stable for discharge home. CONDITION: Good, improved. DISPOSITION: Home. DISCHARGE MEDICATIONS: Aspirin 81 mg p.o. daily, Lipitor 40 mg p.o. daily, Imdur 60 mg p.o. daily, Toprol XL 25 mg p.o. daily, Prevacid 20 mg p.o. daily and Oxycodone 30 mg p.o. q. 6 hours p.r.n. pain. DISCHARGE INSTRUCTIONS: The patient was advised that if he has any recurrence of his symptoms to present to his PMD or to the nearest ED immediately. The patient was also advised to refrain any strenuous activity for the next week. FOLLOWUP: The patient to follow up with his PMD within 1 week of discharge for a blood pressure check and medication adjustment as needed. Isaac Magaña MD [facility]
== END 2018-08-31 12:29 | disposition home or self-care (01) ==
LOC: ED 01:04 → ERH 03:15 → 3RNO 04:36 → ERH 04:37 → 3RNO 06:39
PROVIDERS: ADMIT Student in an Organized Health Care Education/Training Program; ATTEND Student in an Organized Health Care Education/Training Program
DX: R07.89 Other chest pain (principal); I25.10 Atherosclerotic heart disease of native coronary artery without angina pectoris; I10 Essential (primary) hypertension; C01 Malignant neoplasm of base of tongue; J44.9 Chronic obstructive pulmonary disease, unspecified; E78.5 Hyperlipidemia, unspecified; I71.2 Thoracic aortic aneurysm, without rupture; M54.30 Sciatica, unspecified side; K21.9 Gastro-esophageal reflux disease without esophagitis; Z85.810 Personal history of malignant neoplasm of tongue; Z92.3 Personal history of irradiation; Z92.21 Personal history of antineoplastic chemotherapy; Z95.5 Presence of coronary angioplasty implant and graft; Z96.652 Presence of left artificial knee joint; Z87.442 Personal history of urinary calculi; Z87.891 Personal history of nicotine dependence
CPT/HCPCS: 36415; 71045; 71275; 74175; 80053; 81003; 83735; 83880; 84484; 85025; 85610; 85730; 93005; 96361; 96374; 96376; 99285; G0378; J2270; J7030; Q9967

== ENCOUNTER 2018-09-25 02:58 | Emergency (ER) | payer MEDICARE ==
[2018-09-25 03:13] VITALS: RESP 18; TEMP 97.9; BMI 29.0
--- NOTE | 2018-09-25 03:22 | ED PDOC ---
Arrival/HPI - General Chief Complaint: ENT Problem Time Seen by Provider: 09/25/18 03:21 Historian: Patient - History of Present Illness Narrative History of Present Illness (Text): 09/25/18 03:21 Paolo Torres is a 58 year old male, whose past medical history inclues kidney stones, throat cancer, hypertension, CAD, thoracic aneurysm, dyslipidemia, hypogonadism, and brain aneurysm,, who presents to the Emergency department co mplaining of sore throat tonight. Patient states he has been experiencing throat irritation with some swelling since yesterday. Patient was advised to come to the Emergency department for further evaluation by his oncologist. Patient denies any fever, chills, chest pain, shortness of breath, nausea, vomiting, diarrhea, urinary symptoms, back pain, neck pain, headache, dizziness, or any other complaints. Symptom Onset: Gradual Symptom Course: Unchanged Activities at Onset: Light Context: Home Past Medical History - Provider Review Nursing Documentation Reviewed: Yes - Infectious Disease Hx of Infectious Diseases: None - Tetanus Immunization Tetanus Immunization: Unknown - Cardiac Hx Cardiac Disorders: Yes Hx Angina: Yes Hx Hypertension: Yes - Pulmonary Hx Respiratory Disorders: Yes Hx Chronic Obstructive Pulmonary Disease (COPD): Yes Other/Comment: Throat CA w/ trach and reversal, completion of chemo and radiation therapy. -last chemo/radiation x 5weeks ago - Neurological Hx Neurological Disorder: No - HEENT Hx Difficulty Chewing: Yes Other/Comment: difficulty swallowing d/t throat ca - Renal Hx Kidney Stones: Yes - Endocrine/Metabolic Hx Endocrine Disorders: No - Hematological/Oncological Hx Blood Disorders: No - Integumentary Hx Dermatological Disorder: Yes Other/Comment: MRSA buttock 2016 - Musculoskeletal/Rheumatological Hx Arthritis: Yes Hx Falls: No - Gastrointestinal Hx Gastroesophageal Reflux: Yes HX Swallowing Problems: Yes - Genitourinary/Gynecological Hx Genitourinary Disorders: No - Psychiatric Hx Psychophysiologic Disorder: No Hx Substance Use: Yes (H/O OPIATE OD) - Surgical History Hx Cardiac Catheterization: Yes Hx Coronary Stent: Yes (Stents x2) Hx Orthopedic Surgery: Yes Other/Comment: trach w/ removal, brain aneurysm w/ coiling, R total hip replacement, L knee replacement - Anesthesia Hx Anesthesia: Yes Hx Anesthesia Reactions: No Hx Malignant Hyperthermia: No - Suicidal Assessment Feels Threatened In Home Enviroment: No Family/Social History - Physician Review Nursing Documentation Reviewed: Yes Family/Social History: Unknown Family HX Smoking Status: Light Smoker < 10 Cigarettes Daily Hx Alcohol Use: Yes (last drink was 7mos ago) Frequency of alcohol use: Socially Hx Substance Use: Yes (H/O OPIATE OD) Hx Substance Use Treatment: No Allergies/Home Meds Allergies/Adverse Reactions: Allergies No Known Allergies Allergy (Verified 08/31/18 01:18) Home Medications: Home Meds Medication Instructions Recorded Confirmed Lisinopril [Zestril] 40 mg PO DAILY 08/31/18 09/25/18 Clotrimazole [Mycelex [place]] 1 tab PO DAILY 09/25/18 09/25/18 Isosorbide Mononitrate [Isosorbide 30 mg PO DAILY 09/25/18 09/25/18 Mononitrate ER] Rosuvastatin Calcium [Crestor] 1 tab PO HS 09/25/18 09/25/18 Review of Systems - Physician Review All systems were reviewed & negative as marked: Yes - Review of Systems Constitutional: Normal. absent: Fevers Eyes: Normal ENT: Sore Throat Respiratory: Normal. absent: SOB, Cough Cardiovascular: Normal. absent: Chest Pain Gastrointestinal: Normal. absent: Abdominal Pain, Diarrhea, Nausea, Vomiting Genitourinary Male: Normal Musculoskeletal: Normal. absent: Back Pain, Neck Pain Skin: Normal. absent: Rash, Other Neurological: Normal. absent: Dizziness Endocrine: Normal Hemo/Lymphatic: Normal Psychiatric: Normal Physical Exam Vital Signs Reviewed: Yes Vital Signs Temp Pulse Resp BP Pulse Ox 09/25/18 03:12 97.9 F 80 18 130/96 H 97 Temperature: Afebrile Blood Pressure: Normal Pulse: Regular Respiratory Rate: Normal Appearance: Positive for: Well-Appearing, Non-Toxic, Comfortable Pain Distress: None Mental Status: Positive for: Alert and Oriented X 3 - Systems Exam Head: Present: Atraumatic, Normocephalic Pupils: Present: PERRL Extroacular Muscles: Present: EOMI Conjunctiva: Present: Normal Ears: Present: Normal, NORMAL TM, Normal Canal. No: Erythema, TM Bulging, Fluid, TM Perf Mouth: Present: Moist Mucous Membranes Pharnyx: Present: ERYTHEMA. No: EXUDATE, TONSILS ENLARGED, Peritonsilar Swelling, Uvular Deviation, Muffled/Hoarse Voice, Strider, Soft Palate/Uvular Edema Nose (External): Present: Atraumatic Nose (Internal): Present: Normal Inspection Neck: Present: Normal Range of Motion Respiratory/Chest: Present: Clear to Auscultation, Good Air Exchange. No: Respiratory Distress, Accessory Muscle Use Cardiovascular: Present: Regular Rate and Rhythm, Normal S1, S2. No: Murmurs Abdomen: No: Tenderness, Distention, Peritoneal Signs Back: Present: Normal Inspection Upper Extremity: Present: Normal Inspection. No: Cyanosis, Edema Lower Extremity: Present: Normal Inspection. No: Edema Neurological: Present: GCS=15, CN II-XII Intact, Speech Normal Skin: Present: Warm, Dry, Normal Color. No: Rashes Psychiatric: Present: Alert, Oriented x 3, Normal Insight, Normal Concentration Medical Decision Making ED Course and Treatment: 09/25/18 03:22 Impression: 58 year old male complaining of throat irritation and swelling since yesterday. Plan: -- Decadron -- Nystatin -- Morphine -- Benadryl -- Reassess and disposition Prior Visits: Notes and results from previous visits were reviewed. Progress Notes: - Scribe Statement The provider has reviewed the documentation as recorded by the Jenaibkevin Solomon Provider Scribe Attestation: All medical record entries made by the Scribe were at my direction and personally dictated by me. I have reviewed the chart and agree that the record accurately reflects my personal performance of the history, physical exam, medical decision making, and the department course for this patient. I have also personally directed, reviewed, and agree with the discharge instructions and disposition. Disposition/Present on Arrival - Present on Arrival Any Indicators Present on Arrival: No History of DVT/PE: No History of Uncontrolled Diabetes: No Urinary Catheter: No History of Decub. Ulcer: No History Surgical Site Infection Following: None - Disposition Have Diagnosis and Disposition been Completed?: Yes Diagnosis: Dysphagia Disposition: HOME/ ROUTINE Disposition Time: 05:30 Condition: GOOD Discharge Instructions (ExitCare): Dysphagia (DC) Additional Instructions: follow up with your pmd today Referrals: Archana EDWARD,Isaac Jimenez MD [Primary Care Provider] - Follow up with primary Forms: [employer] (K[place]akh)
[2018-09-25] MEDS ORDERED: Dexamethasone 4 mg/1 ml IM STA (03:23)
[2018-09-25] MEDS ORDERED: DiphenhydrAMINE 12.5 mg/5 ml LIQ UD (5 ml) PO STA (03:23)
[2018-09-25] MEDS ORDERED: Morphine 10 mg/5 ml Oral Soln PO STA (03:24)
[2018-09-25] MEDS ORDERED: NYSTATIN 100000 UNIT/ML PO STA (03:41)
[2018-09-25 05:31] VITALS: BP 125/86; PULSE 75; O2SAT 100
== END 2018-09-25 05:31 | disposition home or self-care (01) ==
LOC: ED 02:58
DX: R13.10 Dysphagia, unspecified (principal)
CPT/HCPCS: 96372; 99282; J1100